=== PATIENT | male | born 1960 | race Hispanic/Latino ===

== ENCOUNTER 2018-07-09 14:05 | Inpatient (IN) | payer BC ==
[~2018-07-09 14:05] MED LIST: Dexamethasone 20 MG/5 ML VIAL ONE; Glycopyrrolate 0.2 MG/ML 5 ML SYRINGE ONE; ISOVUE-370 76%-LOCM 1 ML ONE; Ketorolac Tromethamine 30 MG/ML VIAL ONE; Lidocaine 1% PF 5 ML VIAL ONE; Ondansetron HCl/PF 4 MG/2 ML Vial ONE; PHENYLEPHRINE-NS 100 MCG/ML 10 ML SYRINGE ONE; PROPOFOL 200 MG/20 ML VIAL ONE; Succinylcholine Chloride 20 MG/ML 10 ml SYRINGE FS ONE; ePHEDrine/0.9% NaCl/PF SYRINGE 50 mg/10 ml ONE
[2018-07-09] MEDS ORDERED: Ondansetron HCl/PF 4 MG/2 ML Vial ONE (14:28)
[2018-07-09 14:41] LABS: #Eosinphils 0.1 thou/uL (0.0-0.7); #Lymphocytes 2.1 thou/uL (1.20-3.40); #Monocytes 0.9 thou/uL (0.11-0.59); #Neutrophils 10.5 thou/uL (1.40-6.50); %Basophils 0.3 % (0.0-1.0); %Eosinophils 0.7 % (0.0-10.0); %Lymphocytes 15.1 % (21.0-51.0); %Monocytes 6.7 % (0.0-10.0); %Neutrophils 77.1 % (42.0-75.0); Hemoglobin 16.1 g/dL (14.0-18.0); Mean Corpuscular HGB CONC 34.1 g/dL (32.0-36.0); Mean Corpuscular Hemoglobin 31.9 pg (27.0-31.0); Mean Corpuscular Volume 93.5 fL (78.0-98.0); Mean Platelet Volume 7.7 fL (7.4-10.4); Platelet Count 325 thou/uL (130-400); RBC Distribution Width 12.2 % (11.5-14.5); Red Blood Cell (RBC) Count 5.04 mill/uL (4.70-6.10); White Blood Cell (WBC) Count 13.6 thou/uL (4.8-10.8)
[2018-07-09 15:01] LABS: ALT (SGPT) 19 U/L (8-55); AST (SGOT) 18 U/L (5-34); Albumin 4.3 g/dL (3.5-5.0); Alkaline Phosphatase 117 U/L (40-150); Anion Gap 16 mmol/L (10-20); BUN (Urea Nitrogen) 14 mg/dL (8.4-25.7); Bilirubin, Total 0.4 mg/dL (0.2-1.2); Calc. Creatinine Clearance 0 mL/min (70-130); Calcium 9.1 mg/dL (7.8-10.44); Carbon Dioxide 22 mmol/L (22-29); Chloride 104 mmol/L (98-107); Estimated GFR-MDRD Greater than 90; Globulin 3.4 g/dL (2.4-3.5); Glucose 179 mg/dL (70-105); Lipase 7 U/L (8-78); Potassium 4.2 mmol/L (3.5-5.1); Protein, Total 7.7 g/dL (6.0-8.3); Sodium 138 mmol/L (136-145)
--- NOTE | 2018-07-09 15:14 | RAD ---
CHEST ONE VIEW ABDOMEN TWO VIEWS: History: 58-year-old male with history of abdominal epigastric pain for three days without vomiting. Prior salud endectomy and hernia repair. FINDINGS: CHEST ONE VIEW: Somewhat less than optimal inspiration but no significant acute intrathoracic disease. ABDOMEN TWO VIEWS: There are abnormally dilated distended small bowel loops with air and fluid levels, evidence for smal l bowel obstruction. There is some gas and fecal material within the transverse colon. There is no free intraperitoneal air. IMPRESSION: Evidence for small bowel obstruction. No free intraperitoneal air. No acute intrathoracic disease. POS: C
--- NOTE | 2018-07-09 16:10 | CT ---
CT ABDOMEN AND PELVIS WITH IV CONTRAST: Date: 07/09/18 HISTORY: Epigastric pain. Nausea. FINDINGS: There is mild haziness in the lung bases. No free air or free fluid is seen in the abdomen or pelvis. The liver, spleen, pancreas, adrenal glands, and kidneys are normal. No calcified gallstones are see n. There is a left-sided abdominal wall hernia in the left lower quadrant with loops of small bowel, some of which are dilated, and others are decompressed, indicating obstruction. There are inflammator y changes in the fat within the hernia sac. There is sigmoid diverticulosis. There are vascular calcifications without evidence of aneurysmal dil atation of the abdominal aorta. A circumaortic left renal vein is present. There are degenerative lobo nges in the spine. IMPRESSION: Left lower anterior abdominal hernia with obstructing loops of small bowel and probable strangulation . Discussed over the telephone with ER physician, Dr. Peña, at 1548 hours. CODE CR. POS: GRISELDA
[2018-07-09] MEDS ORDERED: Bupivacaine/Epinephrine 0.25% 30 ML VIAL ONE (16:41)
[2018-07-09] MEDS ORDERED: Fentanyl 250 MCG/5 ML VIAL ONE (17:12)
[2018-07-09] MEDS ORDERED: HYDROmorphone 2 MG/ML VIAL ONE (17:15)
[2018-07-09] MEDS ORDERED: Albumin 5% 500 ML ONE (18:07)
[2018-07-09] MEDS ORDERED: hydrALAZINE 20 MG/ML VIAL SLOW IVP PRN (19:18)
[2018-07-09] MEDS ORDERED: Dextrose 50% Abboject 50 ML SYRINGE SLOW IVP PRN (19:18)
[2018-07-09] MEDS ORDERED: Dextrose 5% in Water 1,000 ML IV PRN (19:18)
[2018-07-09] MEDS ORDERED: Promethazine HCl 25 MG/ML VIAL IM PRN ×4 (19:18→19:26)
[2018-07-09] MEDS ORDERED: Ondansetron HCl/PF 4 MG/2 ML Vial IVP PRN ×4 (19:18→19:26)
[2018-07-09] MEDS ORDERED: diphenhydrAMINE 50 MG/ML VIAL IM PRN (19:24)
[2018-07-09] MEDS ORDERED: diphenhydrAMINE 25 MG CAP PO PRN (19:24)
[2018-07-09] MEDS ORDERED: diphenhydrAMINE 50 MG/ML VIAL IVP PRN (19:24)
[2018-07-09] MEDS ORDERED: Promethazine HCl 25 MG/ML VIAL SLOW IVP PRN ×2 (19:24→19:26)
[2018-07-09] MEDS ORDERED: fentaNYL Citrate/PF 2,000 MCG in Sodium Chloride 0.9% 60 ML IV PRN (19:24)
[2018-07-09] MEDS ORDERED: Zolpidem Tartrate 5 MG TAB PO PRN (19:24)
[2018-07-09] MEDS ORDERED: Naloxone HCl 0.4 mg/ml Vial IV PRN (19:24)
[2018-07-09] MEDS ORDERED: Communication Order-Pharmacy FS SCH (19:30)
[2018-07-09] MEDS ORDERED: Fentanyl 100 MCG/2 ML VIAL ONE (19:53)
[2018-07-09] MEDS: Famotidine/PF 20 mg/2ml Vial SLOW IVP SCH (22:47)
[2018-07-09] MEDS: Famotidine 20 MG TAB PO SCH (22:47)
[2018-07-09] MEDS: D5 1/2 NS w/20 mEq KCL 1,000 ML IV SCH (22:47)
[2018-07-09] MEDS: Levofloxacin 500 mg/D5W 100 ml Premix Bag IVPB SCH (22:47)
[2018-07-09 23:08] VITALS: BMI 39.6
--- NOTE | 2018-07-09 23:57 | OP ---
DATE OF PROCEDURE: 07/09/2018 PREOPERATIVE DIAGNOSIS: Incarcerated strangulated incisional hernia. POSTOPERATIVE DIAGNOSIS: Incarcerated strangulated incisional hernia. PROCEDURE: Incarcerated strangulated incisional hernia repair with mesh, Ventralex 15 x 18 cm. SURGEON: Justin Joe M.D. ANESTHESIA: General. ESTIMATED BLOOD LOSS: Minimal. COMPLICATIONS: None. SPECIMEN: None. FINDINGS: Multiple holes in the left abdomen in area of previous surgery. TECHNIQUE: The patient was taken to the operating room and placed supine on the table. After genera l anesthetic was obtained an NG tube was placed as well as a Perry. His abdomen was shaved, prepped, and draped in a sterile fashion. Midline incision was made cut dissect around the hernia sac in the left abdomen. He had several small holes in significant amount of incarcerated omentum chronically scarred to the abdominal wall. This was all taken down back to the fascial defect. The hernia sac w as entered and the hernia sacs were debrided from the edges of the fascia circumferentially, multiple intra-abdominal adhesions had to be taken down as well. The Ventralex mesh was brought into the nilesh rile field and moistened and placed with the nonadherent surface down. The mesh had a Prolene is used to sew the mesh to the fascial edges circumferentially with good overlap. There was too big of the fascial defect to cover the mesh. The wound was irrigated. separate stab incision and sewn in place using 2-0 silk. The wound was closed using 3-0 Vicryl, 4-0 Monocryl, and Dermabond. T he patient was en route to recovery in stable condition. All instrument counts, needle counts, lap c ounts were correct.
--- NOTE | 2018-07-09 23:58 | HP ---
CHIEF COMPLAINT: Incarcerated hernia. HISTORY OF PRESENT ILLNESS: This is a 58-year-old male with a longstanding history of a large ventra l incisional hernia. He states that he had previous hernia repair. He then had to have open appende ctomy where his midline wound was left open, described 8/10 sharp pain associated with nausea, no vom iting. He did vomit once after the CT contrast was given. No change in bowels. He does not think h e has mesh in place from the prior hernia repair. PAST MEDICAL HISTORY: He denies. PAST SURGICAL HISTORY: As above. MEDICINES TAKEN DAILY: None. ALLERGIES: No known drug allergies. SOCIAL HISTORY: Former smoker. No alcohol or other drugs. REVIEW OF SYSTEMS: Ten-system review of systems otherwise negative unless described above. PHYSICAL EXAMINATION: HEENT: Sclerae are anicteric. Oropharynx clear. NECK: No lymphadenopathy. CHEST: Clear. HEART: Regular rhythm. ABDOMEN: Soft. Tender in the area of the hernia with localized guarding, without rebound, no inguin al hernias. LABORATORY AND X-RAY FINDINGS: CT scan shows incisional hernia and evidence of blockage of the intestine. ASSESSMENT: Incarcerated likely strangulated incisional hernia. PLAN: Operative laparotomy and repair, possible mesh, possible allograft mesh. He understands risks , benefits, alternatives, gives consent. We will do this today.
[2018-07-10 04:25] LABS: #Monocytes 0.9 thou/uL (0.11-0.59); #Neutrophils 8.6 thou/uL (1.40-6.50); %Basophils 0.1 % (0.0-1.0); %Eosinophils 0.1 % (0.0-10.0); %Lymphocytes 9.1 % (21.0-51.0); %Monocytes 8.5 % (0.0-10.0); %Neutrophils 82.2 % (42.0-75.0); Hemoglobin 13.9 g/dL (14.0-18.0); Mean Corpuscular HGB CONC 34.7 g/dL (32.0-36.0); Mean Corpuscular Hemoglobin 32.6 pg (27.0-31.0); Mean Platelet Volume 7.8 fL (7.4-10.4); Platelet Count 280 thou/uL (130-400); RBC Distribution Width 12.3 % (11.5-14.5); Red Blood Cell (RBC) Count 4.27 mill/uL (4.70-6.10); White Blood Cell (WBC) Count 10.5 thou/uL (4.8-10.8)
[2018-07-10] MEDS: D5 1/2 NS w/20 mEq KCL 1,000 ML IV SCH ×3 (04:29→18:57)
[2018-07-10 04:38] LABS: Anion Gap 15 mmol/L (10-20); BUN (Urea Nitrogen) 15 mg/dL (8.4-25.7); Calc. Creatinine Clearance 225 mL/min (70-130); Calcium 8.2 mg/dL (7.8-10.44); Carbon Dioxide 21 mmol/L (22-29); Chloride 106 mmol/L (98-107); Estimated GFR-MDRD Greater than 90; Glucose 196 mg/dL (70-105); Potassium 4.2 mmol/L (3.5-5.1); Sodium 138 mmol/L (136-145)
[2018-07-10] MEDS: Famotidine/PF 20 mg/2ml Vial SLOW IVP SCH ×2 (09:29→21:52)
[2018-07-10] MEDS: Famotidine 20 MG TAB PO SCH ×2 (11:34→21:52)
--- NOTE | 2018-07-10 14:56 | PRG ---
DATE OF SERVICE: 07/10/2018 SUBJECTIVE: Mr. Lyle is doing well today. He is thirsty. NG output is not put out much. He has been walking. His pain is controlled. PHYSICAL EXAMINATION: VITAL SIGNS: Afebrile. Vital signs are stable. ABDOMEN: Soft. His wounds are healing well. YAYA is more sanguinous. ASSESSMENT: Postop day #1, incisional hernia repair with mesh. PLAN: Discontinue NG, allow clears, make get him up and around. Probably home on Friday.
[2018-07-10] MEDS: Levofloxacin 500 mg/D5W 100 ml Premix Bag IVPB SCH (21:51)
[2018-07-11] MEDS: D5 1/2 NS w/20 mEq KCL 1,000 ML IV SCH (06:14)
[2018-07-11] MEDS: Famotidine 20 MG TAB PO SCH ×2 (08:02→21:32)
[2018-07-11] MEDS: Famotidine/PF 20 mg/2ml Vial SLOW IVP SCH ×2 (08:03→22:03)
[2018-07-11] MEDS ORDERED: Morphine 4 MG/ML VIAL SLOW IVP PRN (08:15)
[2018-07-11] MEDS ORDERED: HYDROcodone/Acetaminophen 10/325 mg Tablet PO PRN (08:15)
--- NOTE | 2018-07-11 08:55 | PRG ---
DATE OF SERVICE: 07/11/2018 SUBJECTIVE: Mr. Lyle is doing well. He tolerated the clear liquids. No nausea. OBJECTIVE: VITAL SIGNS: He is afebrile. Vital signs are stable. ABDOMEN: Soft. He is minimally distended. His wounds are healing well. He has some erythema over the hernia site. YAYA output is serosanguineous. ASSESSMENT: Postoperative day #2, large incisional hernia repair with mesh. PLAN: Advance to full today. Discontinue DEVELOPMENT ARCHITECT. Start [place]. Home tomorrow if tolerates.
[2018-07-11] MEDS: HYDROcodone/Acetaminophen 10/325 mg Tablet PO PRN ×2 (09:43→21:31)
[2018-07-11] MEDS: Levofloxacin 500 mg/D5W 100 ml Premix Bag IVPB SCH (21:32)
[2018-07-12] MEDS: HYDROcodone/Acetaminophen 10/325 mg Tablet PO PRN (08:50)
[2018-07-12] MEDS: Famotidine 20 MG TAB PO SCH ×2 (08:50→21:37)
[2018-07-12] MEDS: Famotidine/PF 20 mg/2ml Vial SLOW IVP SCH ×2 (08:56→21:44)
--- NOTE | 2018-07-12 09:02 | PRG ---
DATE OF SERVICE: 07/12/2018. SUBJECTIVE: Mr. Lyle is doing well with the liquid diet. Denies nausea. He has been ambulat ory. OBJECTIVE: VITAL SIGNS: He is afebrile. Vital signs are stable. ABDOMEN: Soft, minimally distended, but he has bowel sounds. Midline wound healing well. He does h ave some erythema in the thin skin over the hernia site in the left upper abdomen. YAYA hargrove ASSESSMENT: Postop large incisional hernia repair with mesh. PLAN: Advance diet, convert to oral antibiotics, possible home tomorrow.
[2018-07-13] MEDS: HYDROcodone/Acetaminophen 10/325 mg Tablet PO PRN ×2 (05:00→08:43)
[2018-07-13] MEDS: Famotidine 20 MG TAB PO SCH (08:41)
[2018-07-13] MEDS: Famotidine/PF 20 mg/2ml Vial SLOW IVP SCH (08:45)
--- NOTE | 2018-07-13 10:27 | DIS ---
ADMIT DIAGNOSIS: Incarcerated strangulated incisional hernia. DISCHARGE DIAGNOSIS: Incarcerated strangulated incisional hernia. PROCEDURES: Incarcerated incisional hernia repair with mesh by Dr. Joe without complication. CONDITION AT DISCHARGE: Improved. STAFF: Dr. Justin Joe HOSPITAL COURSE: Today, the patient is doing well. He is tolerating regular diet. He has had a bow el movement. He is afebrile. His wounds are healing well. There is no evidence of infection. YAYA i s serosanguineous. ASSESSMENT: Discharge to home to follow up with me in 1 week for drain removal. Prescriptions given for Turpin and Zofran.
[2018-07-13 12:19] VITALS: BP 145/85; TEMP 97.8
== END 2018-07-13 12:36 | disposition home or self-care (01) | DRG 354 ==
LOC: ERS 14:05 → SDC/OP 16:04 → ERS 16:33 → SURG A 21:22
PROVIDERS: ADMIT Surgery; ATTEND Surgery
PROC: 0WUF0JZ Supplement Abdominal Wall with Synthetic Substitute, Open Approach (ICD-10-PCS; principal; 2018-07-09)
DX: K43.0 Incisional hernia with obstruction, without gangrene (principal); Z68.41 Body mass index [BMI] 40.0-44.9, adult; E66.9 Obesity, unspecified; Z87.891 Personal history of nicotine dependence
CPT/HCPCS: 36415; 74022; 74177; 80048; 80053; 83690; 85025; 96374; 96375; 99406; J1100; J1170; J1885; J1956; J2001; J2270; J2405; J2704; J3010; J7050; P9045; S0028

== ENCOUNTER 2019-08-07 07:17 | Emergency (ER) | payer BC ==
[2019-08-07 07:58] LABS: #Basophils 0.1 thou/uL (0.0-0.2); #Eosinphils 0.2 thou/uL (0.0-0.7); #Lymphocytes 3.1 thou/uL (1.20-3.40); #Monocytes 0.7 thou/uL (0.11-0.59); #Neutrophils 8.2 thou/uL (1.40-6.50); %Basophils 0.8 % (0.0-1.0); %Lymphocytes 25.3 % (21.0-51.0); %Monocytes 5.7 % (0.0-10.0); %Neutrophils 66.2 % (42.0-75.0); Hemoglobin 15.3 g/dL (14.0-18.0); Mean Corpuscular HGB CONC 33.9 g/dL (32.0-36.0); Mean Corpuscular Hemoglobin 30.8 pg (27.0-31.0); Mean Corpuscular Volume 90.7 fL (78.0-98.0); Mean Platelet Volume 8.3 fL (7.4-10.4); Platelet Count 319 thou/uL (130-400); RBC Distribution Width 12.3 % (11.5-14.5); Red Blood Cell (RBC) Count 4.98 mill/uL (4.70-6.10); White Blood Cell (WBC) Count 12.4 thou/uL (4.8-10.8)
[2019-08-07 08:20] LABS: ALT (SGPT) 11 U/L (8-55); AST (SGOT) 9 U/L (5-34); Albumin 3.8 g/dL (3.5-5.0); Alkaline Phosphatase 126 U/L (40-150); Anion Gap 10 mmol/L (10-20); BUN (Urea Nitrogen) 11 mg/dL (8.4-25.7); Bilirubin, Total 0.3 mg/dL (0.2-1.2); Calc. Creatinine Clearance 0 mL/min (70-130); Calcium 8.8 mg/dL (7.8-10.44); Carbon Dioxide 25 mmol/L (22-29); Chloride 102 mmol/L (98-107); Estimated GFR-MDRD Greater than 90; Globulin 2.8 g/dL (2.4-3.5); Glucose 288 mg/dL (70-105); Potassium 4.2 mmol/L (3.5-5.1); Protein, Total 6.6 g/dL (6.0-8.3); Sodium 133 mmol/L (136-145)
== END 2019-08-07 08:33 | disposition home or self-care (01) ==
LOC: ERS 07:17
DX: R73.9 Hyperglycemia, unspecified (principal); F17.210 Nicotine dependence, cigarettes, uncomplicated
CPT/HCPCS: 36415; 36416; 80053; 82010; 85025; 99284

== ENCOUNTER 2020-02-20 00:16 | Inpatient (IN) | payer BC ==
[2020-02-20] MEDS ORDERED: Morphine 4 MG/ML VIAL ONE (00:50)
[2020-02-20] MEDS ORDERED: Ondansetron PF 4 MG/2 ML Vial ONE (00:51)
[2020-02-20 01:16] LABS: #Basophils 0.1 thou/uL (0.0-0.2); #Eosinphils 0.1 thou/uL (0.0-0.7); #Lymphocytes 1.7 thou/uL (1.20-3.40); #Monocytes 0.6 thou/uL (0.11-0.59); #Neutrophils 15.2 thou/uL (1.40-6.50); %Basophils 0.3 % (0.0-1.0); %Eosinophils 0.3 % (0.0-10.0); %Lymphocytes 9.5 % (21.0-51.0); %Monocytes 3.4 % (0.0-10.0); %Neutrophils 86.4 % (42.0-75.0); Hemoglobin 14.6 g/dL (14.0-18.0); Mean Corpuscular HGB CONC 33.5 g/dL (32.0-36.0); Mean Corpuscular Hemoglobin 30.2 pg (27.0-31.0); Mean Corpuscular Volume 90.3 fL (78.0-98.0); Mean Platelet Volume 8.1 fL (7.4-10.4); Platelet Count 358 thou/uL (130-400); RBC Distribution Width 12.3 % (11.5-14.5); Red Blood Cell (RBC) Count 4.83 mill/uL (4.70-6.10); White Blood Cell (WBC) Count 17.6 thou/uL (4.8-10.8)
[2020-02-20 01:31] LABS: ALT (SGPT) 10 U/L (8-55); AST (SGOT) 10 U/L (5-34); Albumin 3.9 g/dL (3.5-5.0); Alkaline Phosphatase 115 U/L (40-110); Anion Gap 14 mmol/L (10-20); BUN (Urea Nitrogen) 14 mg/dL (8.4-25.7); Bilirubin, Total 0.4 mg/dL (0.2-1.2); Calc. Creatinine Clearance 0 mL/min (70-130); Calcium 8.9 mg/dL (7.8-10.44); Carbon Dioxide 31 mmol/L (22-29); Chloride 96 mmol/L (98-107); Estimated GFR-MDRD Greater than 90; Glucose 209 mg/dL (70-105); Lipase 11 U/L (8-78); Potassium 3.7 mmol/L (3.5-5.1); Protein, Total 6.9 g/dL (6.0-8.3); Sodium 137 mmol/L (136-145)
--- NOTE | 2020-02-20 01:48 | PDOC.FPRHP ---
- History of Present Illness Chief Complaint: abd pain History of Present Illness: Patient is a 59 yo male who presents with complaint of lower abdominal pain, worse on the right side, that started around 11 AM on 02/19/20. Patient says pain has become progressively worse throughout the day, accompanied by nausea & some bloating but denies any vomiting. Has been passing some gas. Has had similar pain on/off for the past week but yesterday it became constant. He reports having to use Miralax for the past year to have regular BM's, which he has daily. When he has a BM he describes them as "little" and usually watery with some formed stools. He has never had a colonoscopy. He does have a history of an incarcerated ventral hernia that was repaired in Jun [address] Wilson at [facility]. Patient says he has had at least 3 other operations on this hernia in the past. He complains of some tenderness in this area but says it is not as significant as in the right lower abdomen. ED Course: Given 1L IVF NS bolus, Zofran 4 mg, Morphine 4 mg - Allergies/Adverse Reactions Allergies Allergy/AdvReac Type Severity Reaction Status Date / Time No Known Drug Allergies Allergy Verified 02/20/20 04:28 - Home Medications Medication Instructions Recorded Confirmed Type Indapamide 2.5 mg PO DAILY 02/20/20 02/20/20 History Lisinopril 10 mg PO DAILY 02/20/20 02/20/20 History Vardenafil HCl 10 mg PO PRN PRN 02/20/20 02/20/20 History metFORMIN HCl [Metformin HCl ER] 500 mg PO DAILY 02/20/20 02/20/20 History Comments: *needs home med rec*, patient uses pharmacy [facility] on [facility] - History PMHx: DM2, HTN PSHx: hernia repair x3, appendectomy possibly FHx: denies any family members with Cancer, mom with CAD Social: smokes 1/2-1 ppd, denies EtOH or drug use Dr. Barakat - [facility] - Review of Systems General: reports: weight/appetite/sleep changes (decreased appetite). denies: fever/chills, fatigue Eyes: denies: vision changes Respiratory: denies: cough, congestion, shortness of breath Cardiovascular: denies: chest pain Gastrointestinal: reports: nausea, constipation, abdominal pain. denies: vomiting, diarrhea Genitourinary: denies: dysuria Skin: denies: rashes, jaundice Musculoskeletal: denies: pain, tenderness, swelling, arthritis/arthralgias Neurological: denies: weakness - Vital signs BP: 154/90 HR: 80 RR: 16 Tmax: 97.9F Pox: 97% on RA Wt: 120 kg - Physical Exam Constitutional: NAD, awake, alert and oriented, well developed (obese) HEENT: normocephalic and atraumatic, EOMI, conjunctiva clear, grossly normal vision, grossly normal hearing, MMM Neck: supple, FROM, no JVD Chest: no-tender to palpation, no lesions Heart: RRR, normal S1/S2, pulses present, no edema -Heart: grade II systolic murmur over mitral valve Lungs: CTAB, no respiratory distress, no rales/rhonchi, no wheezing Abdomen: soft, bowel sounds present -Abdomen: mildly TTP over ventral hernia with no guarding or rebound in this area. significantly TTP in RLQ with palpable mass in this area with positive rebound tenderness, no guarding. Musculoskeletal: normal structure, normal tone, ROM grossly normal Neurological: no focal deficit, normal sensation Skin: no rash/lesions, good turgor, no jaundice Heme/Lymphatic: no unusual bruising or bleeding Psychiatric: normal mood and affect, intact recent and remote memory FMR H&P: Results - Labs Result Diagrams: 02/20/20 01:03 02/20/20 01:03 Lab results: WBC 17.6 thou/uL (4.8-10.8) H 02/20/20 01:03 Hgb 14.6 g/dL (14.0-18.0) 02/20/20 01:03 Hct 43.7 % (42.0-52.0) 02/20/20 01:03 MCV 90.3 fL (78.0-98.0) 02/20/20 01:03 Plt Count 358 thou/uL (130-400) 02/20/20 01:03 Neutrophils % 86.4 % (42.0-75.0) H 02/20/20 01:03 Sodium 137 mmol/L (136-145) 02/20/20 01:03 Potassium 3.7 mmol/L (3.5-5.1) 02/20/20 01:03 Chloride 96 mmol/L (98-107) L 02/20/20 01:03 Carbon Dioxide 31 mmol/L (22-29) H 02/20/20 01:03 BUN 14 mg/dL (8.4-25.7) 02/20/20 01:03 Creatinine 0.75 mg/dL (0.7-1.3) 02/20/20 01:03 Glucose 209 mg/dL (70-105) H 02/20/20 01:03 Calcium 8.9 mg/dL (7.8-10.44) 02/20/20 01:03 Total Bilirubin 0.4 mg/dL (0.2-1.2) 02/20/20 01:03 AST 10 U/L (5-34) 02/20/20 01:03 ALT 10 U/L (8-55) 02/20/20 01:03 Alkaline Phosphatase 115 U/L (40-110) H 02/20/20 01:03 Serum Total Protein 6.9 g/dL (6.0-8.3) 02/20/20 01:03 Albumin 3.9 g/dL (3.5-5.0) 02/20/20 01:03 Lipase 11 U/L (8-78) 02/20/20 01:03 - Radiology Interpretation CT scan - abdomen Status: report reviewed by me (4 cm long segment of circumferential colonic wall thickening, just distal to cecum, causing obstruction and distension of the cecum. Cecum measures up to at least 9.6 cm in diameter. There is inflammatory stranding and multiple subcentimeter lymph nodes at the site of the colonic wall thickening. Sigmoid diverticulosis. Cholelithiasis vs gallbladder sludge.) FMR H&P: A/P - Problem List (1) Large bowel obstruction Current Visit: Yes Status: Acute Code(s): K56.609 - UNSP INTESTNL OBST, UNSP TO PARTIAL VERSUS COMPLETE OBST (2) HTN (hypertension) Current Visit: Yes Status: Acute Code(s): I10 - ESSENTIAL (PRIMARY) HYPERTENSION Qualifiers: Hypertension type: unspecified Qualified Code(s): I10 - Essential (primary ) hypertension (3) T2DM (type 2 diabetes mellitus) Current Visit: Yes Status: Acute Qualifiers: Diabetes mellitus mcfp insulin use: without [employer] use Diabetes mellitus complication status: without complication Qualified Code(s): E11.9 - Type 2 diabetes mellitus without complications (4) Ventral hernia Current Visit: Yes Status: Acute Code(s): K43.9 - VENTRAL HERNIA WITHOUT OBSTRUCTION OR GANGRENE Qualifiers: Obstruction and gangrene presence: without obstruction or gangrene Qualified Code(s): K43.9 - Ventral hernia without obstruction or gangrene - Plan 59 yo male with PMHx of HTN and DM who presents with abdominal pain is admitted for LBO with suspected colon mass: #Large Bowel Obstruction -Likely 2/2 mass of colon just distal to cecum -NG tube placed in ER -Consult General Surgery-Dr. Choi, was called from ED, instructed to place NGT and will see pt in AM--appreciate further recs -s/p 1L NS in ED, will continue maintenance IVF LR @ 125 -Zofran prn for nausea -Morphine prn for pain #HTN -Continue home meds once able to med rec #DM2 -Hold home metformin -Hyperglycemia protocol in place -mild SSI & bedtime correctional SSI -Accuchecks ACHS #Tobacco abuse -smokes 0.5-1 ppd -smoking cessation counseling Diet: NPO, ice chips okay VTE ppx: SCD's pending surgical eval Code Status: FULL Dispo: Stable, Admit to inpatient on Surgical unit. Await surgical eval in AM, appreciate recs. Anticipate LOS > 2 days. FMR H&P: Upper Level - Pertinent history 59 y/o M PMHx DM2, HTN presents to the ED due to abdominal pain. He reports the abdominal pain became severe around 1pm today. He ate lunch around 11 and noticed mild pain around 12. He reports the pain has been intermittent over the past week, but not as severe. The pain is mostly in his R lower abdomen. He reports having to use Miralax for the past year to have regular BM's. He said that he only has little BM's each time. He reports nausea , but denies vomiting. He feels bloated. He has never had a colonoscopy. - Pertinent findings Vitals: BP 154/90, HR 80, RR 16, Temp 97.9, O2 sat 97% on RA PE: Gen - alert, oriented, NAD Abd - ventral hernia, non-distended, mass palpated in RLQ with associated tenderness Labs: WBC 17.6 CT abd/pelvis: circumferential colonic wall thickening distal to cecum causing obstruction and distension of the cecum - Plan Date/Time: 02/20/20 2601 I, Tammie Fernandez MD, PGY-3, have evaluated this patient and agree with findings/ plan as outlined by internet consultant resident. Pertinent changes/additions are listed here. Large Bowel Obstruction Likely 2/2 ascending colonic mass -NG tube placed in ER -NPO -General surgery consulted from ED and will see pt in AM -IVF -Zofran Colonic Mass Pt never had a colonoscopy, no family hx colon cancer -General surgeon has been consulted HTN -Continue home meds once able to med rec DM2 -Hold metformin -SSI -Accuchecks ACHS Dispo: Admit to Surgical VTE ppx: SCD's pending surgical eval Code Status: Full Addendum - Attending - Attending Attestation Date/Time: 02/20/20 6748 I personally evaluated the patient and discussed the management with Dr. Yepez/ Jim. I agree with the History, Examination, Assessment and Plan documented above with any addition or exceptions noted below. Patient with chronic but worsening abdominal pain, CT imaging concerning for cecal mass. General Surgery consult and further mgmt per that result. WIll need GI if no plans for surgery.
[2020-02-20 03:05] LABS: Bilirubin Negative (Negative); Blood, Urine Negative (Negative); Clarity Clear (Clear); Glucose, Urine (Dipstick) 50 mg/dL (Negative); Leukocyte Negative Leu/uL (Negative); Nitrite Negative (Negative); Protein, Urine (Dipstick) 20 mg/dL (Neg-Trace); Urobilinogen Normal mg/dL (Less than 2)
[2020-02-20] MEDS ORDERED: Ondansetron ODT 4 MG TAB SL PRN (03:34)
[2020-02-20] MEDS ORDERED: Morphine 2 MG/ML SYRINGE SLOW IVP PRN ×2 (03:34→03:39)
[2020-02-20] MEDS ORDERED: Ondansetron PF 4 MG/2 ML Vial IVP PRN ×2 (03:34→03:39)
[2020-02-20] MEDS ORDERED: Acetaminophen 650 MG Suppository PR PRN (03:39)
[2020-02-20] MEDS ORDERED: Senokot S 8.6-50 MG TAB PO PRN (03:39)
[2020-02-20] MEDS ORDERED: Dextrose 5% in Water 1,000 ML IV PRN (03:39)
[2020-02-20] MEDS ORDERED: Ondansetron ODT 4 MG TAB PO PRN (03:39)
[2020-02-20] MEDS ORDERED: HumaLOG 300 UNITS/3 ML VIAL SC PRN (03:39)
[2020-02-20] MEDS ORDERED: Dextrose 50% Abboject 50 ML SYRINGE SLOW IVP PRN (03:39)
[2020-02-20] MEDS: Sodium Chloride 0.9% 1,000 ML IV SCH ×2 (03:58→13:13)
[2020-02-20 04:23] VITALS: BMI 36.9
[2020-02-20] MEDS: Lactated Ringer's 1,000 ML IV SCH ×3 (04:58→17:04)
--- NOTE | 2020-02-20 08:13 | CT ---
PRELIMINARY REPORT/DIRECT RADIOLOGY/EMERGENCY AFTER HOURS PROCEDURE Receipt of this report by the clinical staff was confirmed with Ruben Whalen RN by Ivana Amado on Feb 20, 2020 01:08:00 CDT. Addendum electronically signed by Ivana Amado on February 20, 2020 1:08:53 AM CDT EXAM: CT Abdomen and Pelvis with Intravenous Contrast CLINICAL HISTORY: RLQ Abdominal Pain TECHNIQUE: Axial computed tomography images of the abdomen and pelvis with intravenous contrast. CONTRAST: With; ISOVUE 370,100mL COMPARISON: CT\OK\SR - CT ABDOMEN PELVIS W CON - 07/09/2018 03:28 PM CDT FINDINGS: LUNG BASES: Mild bibasilar groundglass opacities. Coronary artery calcifications. LIVER: Unremarkable. GALLBLADDER AND BILE DUCTS: Dense material layers in the gallbladder fundus, likely representing eith er stones or sludge. PANCREAS: Unremarkable. SPLEEN: Unremarkable. ADRENAL GLANDS: Unremarkable. KIDNEYS, URETERS, AND BLADDER: Unremarkable. No hydronephrosis or nephrolithiasis. No ureteral or eamon dder calculi. STOMACH AND BOWEL: The cecum is distended and filled with stool and fluid. Just distal to the cecum t here is a 4 cm long segment of circumferential wall thickening of the colon, causing the obstruction, highly concerning for neoplasm. There is also mild dilation of the distal small bowel with fluid. There is inflammatory stranding in the adjacent colonic mesentery and there are multiple subcentimete r lymph nodes. There is also inflammatory stranding surrounding the cecum, likely due to inflammatio n from the distension. There is sigmoid diverticulosis. Patient appears to be status post ventral a bdominal wall hernia repair. There are at least two small ventral abdominal wall hernias near the [facility], containing a loop of small bowel, measuring up to 3.7 cm transverse. APPENDIX: Not seen. PERITONEUM: No free fluid. No free air. LYMPH NODES: No lymphadenopathy. REPRODUCTIVE: Unremarkable as visualized. VASCULATURE: No aortic aneurysm. BONES: No fracture or suspicious osseous abnormality. ABDOMINAL WALL AND SOFT TISSUES: Unremarkable. IMPRESSION: 4 cm long segment of circumferential colonic wall thickening, just distal to the cecum, causing obstr uction and distension of the cecum. The cecum measures up to at least 9.6 cm in diameter. There is inflammatory stranding and multiple subcentimeter lymph nodes at the site of the colonic wall thicke thu. Sigmoid diverticulosis. Cholelithiasis vs gallbladder sludge. ELECTRONICALLY SIGNED BY: Rian Ruth MD Feb 20, 2020 1:03:33 AM CDT FINAL REPORT EMERGENT AFTER HOURS CT ABDOMEN AND PELVIS: IMPRESSION: Agree with the preliminary interpretation. In addition, there is a stable oval fluid density structu re within the extrapleural fat of the medial left lower chest, stable with respect to multiple prior examinations and presumably reflecting a congenital cyst. POS: DAYO
--- NOTE | 2020-02-20 09:10 | RAD ---
PORTABLE CHEST: DATE: 02/20/2020. PROVIDED CLINICAL HISTORY: Abdominal pain. FINDINGS: Comparison 08/19/2011. The upper abdomen and lower thorax are imaged for evaluation of enteric cathet er placement. Cardiac silhouette appears grossly stable in size. No definite focal consolidation is evident. Enteric catheter is noted, the tip of which overlies the left upper abdomen. The bowel ga s pattern is nonspecific. IMPRESSION: As above. POS: DAYO
[2020-02-20] MEDS ORDERED: Heparin 1,000 UNITS/ML VIAL ONE (10:35)
[2020-02-20] MEDS: HumaLOG 300 UNITS/3 ML VIAL SC PRN (12:44)
[2020-02-20] MEDS ORDERED: Iopamidol 370 76% 50 ML VIAL FS ONE (13:27)
[2020-02-20] MEDS ORDERED: cefOXitin 2 GM in Sodium Chloride 0.9% 100 ML IVPB SCH (13:45)
[2020-02-20] MEDS ORDERED: cefOXitin Sodium/Dextrose,Iso 2 GM in Premix Bag 1 BAG IVPB SCH (13:45)
--- NOTE | 2020-02-20 17:28 | CON ---
DATE OF CONSULTATION: REASON FOR CONSULTATION: Abnormal EKG, preoperative evaluation. HISTORY OF PRESENT ILLNESS: Mr. Lyle is a very pleasant 59-year-old gentleman, came in with abdominal pain, may have large bowel obstruction. The plan is to go to the operating room tomorrow. As part of the evaluation, EKG was done, which shows a bifascicular block. The patient denies any chest pain or pressure. No heaviness or squeezing. He is resting comfortably now. No previous cardiac history. MEDICATIONS PRIOR TO ADMISSION: 1. Metformin. 2. Lisinopril. 3. Indapamide. 4. Vardenafil. ALLERGIES: NONE KNOWN. SOCIAL HISTORY: No alcohol or tobacco abuse. REVIEW OF SYSTEMS: Per the chart. CONSTITUTIONAL: No significant weight gain or loss. VISION: No changes. HEARING: No changes. PULMONARY: No cough or wheezing. GASTROINTESTINAL: No nausea, vomiting, or diarrhea. SKIN: No rashes. NEUROLOGIC: No unilateral weakness or numbness. PSYCHIATRIC: No unusual depression or anxiety. PHYSICAL EXAMINATION: VITAL SIGNS: Blood pressure 127/77, pulse 66 and regular. EYES: Sclerae nonicteric. MOUTH: Mucous membranes moist. NECK: Supple. No lymphadenopathy. LUNGS: Clear. CARDIAC: Normal S1, normal S2. There is a 2/6 to 3/6 mid systolic murmur, left mid sternal border. No diastolic murmur. No S3. ABDOMEN: Soft, nontender. EXTREMITIES: Warm and dry. No clubbing, cyanosis, or edema. Pedal pulses present. DIAGNOSTIC STUDIES: EKG shows right bundle-branch block with left axis deviation. Creatinine 0.75, glucose is 184 earlier. ASSESSMENT: 1. Abdominal findings of probable large-bowel obstruction, will need surgical correction. 2. Bifascicular block. 3. Murmur. PLAN: 1. Echocardiogram. 2. I will look to see if he has ever had a previous EKG.. If it is a new finding, I will draw troponin. If it is an old finding, then probably would not need a troponin level. Either way, we plan on surgery tomorrow, but would like to get the echocardiogram first. Job ID: [id number] MTDD
--- NOTE | 2020-02-20 17:45 | CON ---
DATE OF CONSULTATION: CHIEF COMPLAINT: Abdominal pain, distention, and nausea. HISTORY OF PRESENT ILLNESS: This is a 59-year-old male with a 2-week history of abdominal pain and nausea. He said he had bowel movement and some flatus today. No fevers or chills. No family history of colon cancer. He has never had a colonoscopy. PAST MEDICAL HISTORY: Diabetes, hypertension, and obesity. PAST SURGICAL HISTORY: Had at least 2 previous ventral hernia repairs with mesh. MEDICATIONS: He says he takes: 1. Indamide 2.5 mg daily. 2. Vardenafil 10 mg p.o. p.r.n. 3. Metformin 500 daily. 4. Lisinopril 10 mg daily. ALLERGIES: NO KNOWN DRUG ALLERGIES. SOCIAL HISTORY: He is single. Smokes 1/2 pack per day. No alcohol. FAMILY HISTORY: Noncontributory. PHYSICAL EXAMINATION: GENERAL: He is an obese male, in no apparent distress. VITAL SIGNS: His temperature is 98.7, pulse 74, blood pressure 130/71. HEENT: Unremarkable. LUNGS: Clear. HEART: Regular rate and rhythm. ABDOMEN: Obese and soft. He has multiple ventral hernias. He has well-healed surgical scar in the midline. These hernias are easily reducible. There is no significant tenderness. There are bowel sounds present. EXTREMITIES: Unremarkable. LABORATORY DATA: White count 17.6, H and H of 14 and 43, platelet count 358. Electrolytes; elevated glucose at 208. Alkaline phosphatase elevated at 115. CEA is elevated at 5.89. CT scan shows a near-obstructing mass just distal to the cecum in the right colon. There is evidence of lymphadenopathy consistent with possible metastatic disease. He has sigmoid diverticulosis. ASSESSMENT: 1. Near-obstructing colon cancer. 2. Recurrent ventral hernias. PLAN: Recommend exploratory laparotomy, right hemicolectomy with attempt at repair of the hernias. CONSENT: I have discussed the planned procedure as well as risk of bleeding, infection, injury to bowel, recurrence of the hernias, and leakage from anastomosis. He understands and gives informed consent. Job ID: [id number]
[2020-02-20 17:56] LABS: Troponin I Less than 0.010 ng/mL (< 0.028)
[2020-02-21] MEDS: Lactated Ringer's 1,000 ML IV SCH ×3 (01:42→17:30)
[2020-02-21 05:17] LABS: #Basophils 0.1 thou/uL (0.0-0.2); #Eosinphils 0.4 thou/uL (0.0-0.7); #Lymphocytes 3.2 thou/uL (1.20-3.40); #Monocytes 0.7 thou/uL (0.11-0.59); #Neutrophils 6.2 thou/uL (1.40-6.50); %Basophils 0.6 % (0.0-1.0); %Eosinophils 3.8 % (0.0-10.0); %Lymphocytes 30.2 % (21.0-51.0); %Monocytes 6.8 % (0.0-10.0); %Neutrophils 58.5 % (42.0-75.0); Hemoglobin 13.5 g/dL (14.0-18.0); Mean Corpuscular HGB CONC 32.9 g/dL (32.0-36.0); Mean Corpuscular Hemoglobin 29.8 pg (27.0-31.0); Mean Corpuscular Volume 90.5 fL (78.0-98.0); Mean Platelet Volume 8.1 fL (7.4-10.4); Platelet Count 310 thou/uL (130-400); RBC Distribution Width 12.4 % (11.5-14.5); Red Blood Cell (RBC) Count 4.53 mill/uL (4.70-6.10); White Blood Cell (WBC) Count 10.6 thou/uL (4.8-10.8)
[2020-02-21 05:35] LABS: Anion Gap 9 mmol/L (10-20); BUN (Urea Nitrogen) 14 mg/dL (8.4-25.7); Calc. Creatinine Clearance 210 mL/min (70-130); Calcium 8.2 mg/dL (7.8-10.44); Carbon Dioxide 29 mmol/L (22-29); Chloride 101 mmol/L (98-107); Estimated GFR-MDRD Greater than 90; Glucose 139 mg/dL (70-105); Potassium 3.9 mmol/L (3.5-5.1); Sodium 135 mmol/L (136-145)
--- NOTE | 2020-02-21 05:41 | PDOC.FM ---
- Subjective Subjective: Patient doing well this morning. +watery BM, + flatus. Denies hematochezia/ melena. Reports improved abdominal pain. Discussed plans for echo and surgery today, patient agreeable with plan of care. - Objective Vital Signs & Weight: Vital Signs (12 hours) Temp Pulse Resp BP Pulse Ox 02/21/20 03:20 97.3 F L 70 18 123/80 96 02/20/20 23:38 98.3 F 72 18 143/81 H 96 02/20/20 22:40 96 02/20/20 19:16 98.5 F 67 16 132/87 96 Weight Weight 120.202 kg I&O: 02/19/20 02/20/20 02/21/20 06:59 06:59 06:59 Intake Total 1500 Output Total 100 1425 Balance -100 75 Result Diagrams: 02/21/20 04:42 02/21/20 04:42 Phys Exam - Physical Examination Constitutional: NAD HEENT: moist MMs, sclera anicteric Neck: supple, full ROM Respiratory: no wheezing, clear to auscultation bilateral Cardiovascular: RRR holosystolic murmur Gastrointestinal: soft, positive bowel sounds prior incision scar intact, areas of apparent hernia present Musculoskeletal: no edema, pulses present Neurological: normal sensation, moves all 4 limbs Psychiatric: normal affect, A&O x 3 Skin: no rash, normal turgor Dx/Plan (1) Large bowel obstruction Code(s): K56.609 - UNSP INTESTNL OBST, UNSP TO PARTIAL VERSUS COMPLETE OBST Status: Acute (2) HTN (hypertension) Code(s): I10 - ESSENTIAL (PRIMARY) HYPERTENSION Status: Chronic Qualifiers: Hypertension type: unspecified Qualified Code(s): I10 - Essential (primary ) hypertension (3) T2DM (type 2 diabetes mellitus) Status: Chronic Qualifiers: Diabetes mellitus longwall shearer operator insulin use: without jail use Diabetes mellitus complication status: without complication Qualified Code(s): E11.9 - Type 2 diabetes mellitus without complications (4) Ventral hernia Code(s): K43.9 - VENTRAL HERNIA WITHOUT OBSTRUCTION OR GANGRENE Status: Chronic Qualifiers: Obstruction and gangrene presence: without obstruction or gangrene Qualified Code(s): K43.9 - Ventral hernia without obstruction or gangrene - Plan Plan: 59 yo male with PMHx of HTN and DM who presents with abdominal pain is admitted for LBO with suspected colon mass: #Large Bowel Obstruction -Likely 2/2 mass of colon just distal to cecum -NG tube placed in ER, removed -Consult General Surgery-Dr. Choi, was called from ED, instructed to place NGT -Dr. Hogan consulted 02/19, rec surg 02/20 for LBO with suspected colon cancer, and attempted correction of ventral hernia -Dr. 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 Anticipate surgery today. Anticipate LOS > 2 days. Addendum - Attending - Attending Attestation Date/Time: 02/21/202015 I personally evaluated the patient and discussed the management with Dr. Ang I agree with the History, Examination, Assessment and Plan documented above with any addition or exceptions noted below. Patient seen post operatively. States pain is controlled. No concerns awaiting further recommendations from general surgery.
[2020-02-21] MEDS ORDERED: Lidocaine 1% PF 5 ML VIAL ONE (08:50)
[2020-02-21] MEDS ORDERED: Succinylcholine Chloride 20 MG/ML 10 ml SYRINGE FS ONE (08:50)
[2020-02-21] MEDS ORDERED: Metoclopramide HCl 10 MG/2 ML VIAL ONE (08:50)
[2020-02-21] MEDS ORDERED: Glycopyrrolate 0.2 MG/ML 5 ML SYRINGE ONE (08:50)
[2020-02-21] MEDS ORDERED: PROPOFOL 200 MG/20 ML VIAL ONE (08:50)
[2020-02-21] MEDS ORDERED: Bupivacaine HCl 0.5%/Epinephrine 1:200,000/PF 30 ml Vial ONE (08:50)
[2020-02-21] MEDS ORDERED: Rocuronium Bromide 10 MG/ML (10ML VIAL) ONE (08:50)
[2020-02-21] MEDS ORDERED: Ondansetron PF 4 MG/2 ML Vial ONE (08:50)
--- NOTE | 2020-02-21 08:52 | CON ---
DATE OF CONSULTATION: 02/20/2020 CHIEF COMPLAINT: Abdominal pain. HISTORY OF PRESENT ILLNESS: This is a 59-year-old man, who has been having abdominal pain over the last few days. He has been having bowel movements. He has not had any nausea or vomiting. He came into the emergency room because of the abdominal pain. In the process of evaluation, which included a CT scan, it appeared that he had a near obstructing lesion in the cecal area, and he was admitted. His history is also significant for several ventral incisional hernia operations, which have failed. PAST MEDICAL HISTORY: Significant for hypertension, type 2 diabetes, ventral hernia repairs. MEDICATIONS: He takes metformin and lisinopril. ALLERGIES: NONE KNOWN. FAMILY HISTORY: His parents live in [place]. SOCIAL HISTORY: He does smoke half-pack cigarettes per day. Denies use of alcohol. PHYSICAL EXAMINATION: VITAL SIGNS: Blood pressure 157/96, respirations 16, pulse 80, temperature 98.3. GENERAL: He is above ideal body weight. HEAD, EYES, EARS, NOSE, AND THROAT: He has bloodshot eyes. No other obvious abnormalities. NECK: Without masses or lymphadenopathy. Trachea midline. LUNGS: Clear to auscultation. HEART: Regular rhythm without murmurs. ABDOMEN: Significant for midline incision with obvious herniations of the midline of fairly good size, maybe more than one defect. Abdomen is nontender to palpation. Bowel sounds are present. : Appears to be that of a normal male. EXTREMITIES: Pulses are present. No edema. No obvious deformity. NEUROLOGIC: Unremarkable. IMPRESSION: The abnormality in his colon needs to be further evaluated. In going over the history with him, it does not sound as though he is completely obstructed. I do not know whether it is possible that a colonoscopy would be feasible. I do expect that he is going to need a resection of this lesion, but at least at the present time, it does not seem as though he needs to have this done emergently today. Job ID: [id number]
--- NOTE | 2020-02-21 11:29 | PRG ---
DATE OF SERVICE: 02/21/2020 Mr. Lyle had an echocardiogram done today and had normal left ventricular function. There is very mild aortic valve stenosis, not clinically significant. Peak gradient below 20 mmHg systolic. His troponin level is also negative. It is okay to proceed to surgical therapy as being planned. I had asked the patient to follow up with us in the next couple of months. Will need another echocardiogram in 1 to 2 years. At some point, consideration for stress testing could be given in view of the baseline abnormal EKG with bifascicular block, but this is not urgent. I would proceed to surgery as your planning. Please call us if there are any difficulties. Otherwise, I would recommend the patient see us in the office within a few months. Job ID: [id number]
--- NOTE | 2020-02-21 11:29 | PRG ---
DATE OF SERVICE: 02/21/2020 ECHOCARDIOGRAM NORMAL EF AND WALL MOTION TROPONIN NEGATIVE, OK TO PROCEED TO SURGERY DISCUSSED WITH DR CASIANO Job ID: [id number] [facility]ALSavan[facility]
[2020-02-21] MEDS ORDERED: Midazolam HCl 2 mg/2 ml Vial ONE (12:07)
[2020-02-21] MEDS ORDERED: Fentanyl 100 MCG/2 ML VIAL ONE ×2 (12:07→17:24)
[2020-02-21] MEDS ORDERED: Fentanyl 250 MCG/5 ML VIAL ONE (13:21)
[2020-02-21] MEDS ORDERED: cefOXitin 2 GM in Sodium Chloride 0.9% 100 ML IVPB SCH ×2 (16:15→20:00)
[2020-02-21] MEDS ORDERED: Promethazine HCl 25 MG/ML VIAL IM PRN ×2 (16:15→16:29)
[2020-02-21] MEDS ORDERED: Ondansetron PF 4 MG/2 ML Vial IVP PRN (16:15)
[2020-02-21] MEDS ORDERED: Morphine 10 MG/ML VIAL SLOW IVP PRN (16:15)
[2020-02-21] MEDS ORDERED: Insulin Regular 300 UNITS/3 ML VIAL SC PRN (16:15)
[2020-02-21] MEDS ORDERED: hydrALAZINE 20 MG/ML VIAL SLOW IVP PRN (16:15)
[2020-02-21] MEDS ORDERED: Ondansetron HCl/PF 4 MG/2 ML Vial IVP PRN (16:29)
[2020-02-21] MEDS ORDERED: Promethazine HCl 25 MG/ML VIAL SLOW IVP PRN (16:29)
[2020-02-21] MEDS ORDERED: HYDROmorphone 2 MG/ML VIAL SLOW IVP PRN (16:29)
[2020-02-21] MEDS ORDERED: HYDROmorphone 0.5 MG/0.5 ML SYRINGE ONE ×2 (16:48→16:58)
[2020-02-21] MEDS: Sodium Chloride 0.9% 1,000 ML IV SCH (18:11)
[2020-02-21] MEDS: Ketorolac Tromethamine 30 MG/ML VIAL IVP SCH (18:35)
[2020-02-21] MEDS: cefOXitin Sodium/Dextrose,Iso 2 GM in Premix Bag 1 BAG IVPB SCH (21:18)
[2020-02-21] MEDS: Famotidine 20 MG TAB PO SCH (21:18)
[2020-02-21] MEDS: Famotidine/PF 20 mg/2ml Vial SLOW IVP SCH (21:18)
[2020-02-21] MEDS: Morphine 4 MG/ML VIAL SLOW IVP PRN (21:21)
[2020-02-22] MEDS: Ketorolac Tromethamine 30 MG/ML VIAL IVP SCH ×4 (00:33→17:16)
[2020-02-22] MEDS: Sodium Chloride 0.9% 1,000 ML IV SCH ×4 (00:34→20:38)
[2020-02-22] MEDS: Lactated Ringer's 1,000 ML IV SCH ×3 (01:05→22:45)
[2020-02-22] MEDS: cefOXitin Sodium/Dextrose,Iso 2 GM in Premix Bag 1 BAG IVPB SCH (03:40)
[2020-02-22 05:13] LABS: #Lymphocytes 1.8 thou/uL (1.20-3.40); #Monocytes 0.7 thou/uL (0.11-0.59); #Neutrophils 11.2 thou/uL (1.40-6.50); %Basophils 0.3 % (0.0-1.0); %Eosinophils 0.1 % (0.0-10.0); %Lymphocytes 13.1 % (21.0-51.0); %Monocytes 5.4 % (0.0-10.0); %Neutrophils 81.2 % (42.0-75.0); Mean Corpuscular Hemoglobin 30.4 pg (27.0-31.0); Mean Corpuscular Volume 89.6 fL (78.0-98.0); Mean Platelet Volume 8.1 fL (7.4-10.4); Platelet Count 315 thou/uL (130-400); RBC Distribution Width 12.3 % (11.5-14.5); Red Blood Cell (RBC) Count 4.28 mill/uL (4.70-6.10); White Blood Cell (WBC) Count 13.8 thou/uL (4.8-10.8)
--- NOTE | 2020-02-22 05:15 | PDOC.FM ---
- Subjective Subjective: Patient doing well this morning after ex-lap, lysis of adhesions, and R hemicolectomy with ventral hernia repair on 02/20. Reports mild abdominal pain. Reports that he is passing flatus, has not yet had a BM. - Objective Vital Signs & Weight: Vital Signs (12 hours) Temp Pulse Resp BP Pulse Ox 02/22/20 03:23 98.8 F 87 18 102/65 93 L 02/21/20 23:23 98.3 F 84 16 106/67 98 02/21/20 20:15 100 02/21/20 19:12 97.2 F L 93 18 109/66 100 02/21/20 18:09 98.3 F 79 20 128/77 100 Weight Weight 120.202 kg I&O: 02/20/20 02/21/20 02/22/20 06:59 06:59 06:59 Intake Total 3000 Output Total 100 1425 Balance -100 1575 Result Diagrams: 02/22/20 04:47 02/22/20 04:47 Phys Exam - Physical Examination Constitutional: NAD HEENT: moist MMs, sclera anicteric Neck: supple, full ROM Respiratory: no wheezing, clear to auscultation bilateral Cardiovascular: RRR, no significant murmur Gastrointestinal: positive bowel sounds midline incision c/d/i Musculoskeletal: no edema, pulses present Neurological: non-focal, moves all 4 limbs Psychiatric: normal affect, A&O x 3 Skin: no rash, normal turgor Dx/Plan (1) Large bowel obstruction Code(s): K56.609 - UNSP INTESTNL OBST, UNSP TO PARTIAL VERSUS COMPLETE OBST Status: Acute (2) HTN (hypertension) Code(s): I10 - ESSENTIAL (PRIMARY) HYPERTENSION Status: Chronic Qualifiers: Hypertension type: unspecified Qualified Code(s): I10 - Essential (primary ) hypertension (3) T2DM (type 2 diabetes mellitus) Status: Chronic Qualifiers: Diabetes mellitus alf insulin use: without alf use Diabetes mellitus complication status: without complication Qualified Code(s): E11.9 - Type 2 diabetes mellitus without complications (4) Ventral hernia Code(s): K43.9 - VENTRAL HERNIA WITHOUT OBSTRUCTION OR GANGRENE Status: Chronic Qualifiers: Obstruction and gangrene presence: without obstruction or gangrene Qualified Code(s): K43.9 - Ventral hernia without obstruction or gangrene - Plan Plan: 59 yo male with PMHx of HTN and DM who presents with abdominal pain is admitted for LBO with suspected colon mass: #Large Bowel Obstruction -Likely 2/2 mass of colon just distal to cecum -NG tube placed in ER, removed -Consult General Surgery-Dr. Choi, was called from ED, instructed to place NGT -Dr. Hogan consulted 02/19, surg 02/20: ex-lap, lysis of adhesions, R hemicolectomy, ventral hernia repair -Dr. 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 Post-op day 1 for ex-lap , right hemicolectomy, and ventral hernia repair. Gen surg consulted, appreciate recs.
[2020-02-22 05:29] LABS: Anion Gap 11 mmol/L (10-20); BUN (Urea Nitrogen) 16 mg/dL (8.4-25.7); Calc. Creatinine Clearance 190 mL/min (70-130); Calcium 7.8 mg/dL (7.8-10.44); Carbon Dioxide 25 mmol/L (22-29); Chloride 105 mmol/L (98-107); Estimated GFR-MDRD Greater than 90; Glucose 139 mg/dL (70-105); Potassium 4.2 mmol/L (3.5-5.1); Sodium 137 mmol/L (136-145)
[2020-02-22] MEDS: Famotidine 20 MG TAB PO SCH ×2 (08:59→20:38)
--- NOTE | 2020-02-22 11:03 | OP ---
DATE OF PROCEDURE: 02/21/2020 PREOPERATIVE DIAGNOSES: Near obstructing right colon mass, recurrent ventral hernia. PROCEDURES PERFORMED: Exploratory laparotomy, extensive lysis of adhesions, right hemicolectomy, and ventral hernia repair. INDICATIONS FOR PROCEDURE: A 59-year-old male, presented with bowel obstruction, was found on CT to have a mass in the upper right colon that was causing a partial obstruction. He had an elevated CEA level, never had a colonoscopy. FINDINGS: Extremely dense adhesions. There were multiple layers of mesh from previous ventral hernia repairs. There was a herniation between mesh of small bowel, that was also causing a partial obstruction. DESCRIPTION OF PROCEDURE: After informed consent was obtained, the patient was taken to the operating room and given general endotracheal anesthesia, placed in the supine position. Abdomen was prepped and draped in usual fashion. A midline incision was performed. Subcu was divided sharply. There were multiple hernias within the subcu. The mesh was encountered. This had to be opened with curved Bustillo scissors. It was very dense. There were several layers of mesh. Eventually, I was able to get through the mesh, and a very extensive careful lysis of adhesions was performed utilizing Metzenbaum scissors to separate the small bowel from the mesh. There was some what looked like polypropylene mesh. There was some that looked like PTFE mesh. Some that was more like fabric mesh. The must have been at least 3 or 4 pieces of mesh in his belly. There was 1 herniation just to the left of midline with small bowel. This had to be carefully dissected out because it was adherent to the mesh as it went through the hernia. Circumferentially, I was able to free up the anterior abdominal wall. I then mobilized the right colon to the ligament of Treitz. Looked like he had a previous right hemicolectomy or at least an appendectomy because his cecum was high. There was a 5 cm firm mass in the far right upper quadrant at the hepatic flexure. This was mobilized. The small bowel was divided utilizing a LEIDA. The mesentery was divided utilizing the LigaSure, and the right colic vessels were ligated with 2-0 silk suture. Then, the transverse colon was divided utilizing the LEIDA. The mesentery was then further divided down to the base of the right colic vessels. Again, these were ligated with 2-0 silk suture. The specimen was sent to Pathology for further analysis. Hemostasis was assured. A [id number] pro-peristaltic anastomosis was performed. Efferent and afferent bowel contents were excluded utilizing Annabelle clamps. Then, enterotomies were performed in the distal small bowel approximately 10 cm from the staple line. Then, the antimesenteric staple line was excised with the curved Bustillo scissors off the colon. The LEIDA 75 was inserted, one limb in each limb of bowel, closed, and fired. The common enterotomy was closed with a running 2-0 V-Loc PDS. Hemostasis was assured. The mesentery was closed with a running 3-0 Vicryl. The abdomen was thoroughly irrigated. Irrigation fluid was removed. Hemostasis was assured. The bowel was run again. I did not see any evidence of any enterotomy. The omentum was placed anterior. First of all, the hernia was repaired with interrupted azutzu-ec-keaphc of #1 Prolene transversely just basically reapproximating the 2 meshes to close the defect. Then, the abdominal wall was closed with a running looped #1 PDS with interrupted dfavza-ca-jlnlht of #1 Prolene. The subcu was irrigated with saline and then closed with skin naren. Sterile bandage was applied. The patient tolerated the procedure well, transferred to Recovery in good condition. Sponge and needle count verified correct x2. Job ID: [id number]
[2020-02-22] MEDS: Enoxaparin Sodium 40 MG/0.4 ML SYRINGE SC SCH (11:19)
[2020-02-22] MEDS: Morphine 4 MG/ML VIAL SLOW IVP PRN (11:21)
[2020-02-22] MEDS: Famotidine/PF 20 mg/2ml Vial SLOW IVP SCH ×2 (11:25→20:38)
--- NOTE | 2020-02-22 12:35 | PRG ---
DATE OF SERVICE: 02/22/2020 SUBJECTIVE: The patient states he feels fine. Pain is well controlled. No nausea or vomiting. Nothing at its bottom. They lost IV access. They have tried multiple times. He is going down for a PICC line about 30 minutes. OBJECTIVE: VITAL SIGNS: His temperature is 98.7, pulse 75, blood pressure 135/80. GENERAL: He is awake, alert, in no apparent distress. ABDOMEN: Soft, nondistended. The dressing looks dry. LABORATORY DATA: His white count is 13, H and H are 13 and 38, platelet count 315. Electrolytes are fine. A little bit high glucose at 139. He has put out 1025 in his urine. ASSESSMENT: Status post extensive lysis of adhesions, ventral hernia repair, and right hemicolectomy. PLAN: PICC line, discontinue Perry, ambulate. Job ID: [id number]
[2020-02-22] MEDS: HumaLOG 300 UNITS/3 ML VIAL SC PRN (13:50)
--- NOTE | 2020-02-22 14:39 | SPC ---
Exam: Ultrasound guided left upper extremity PICC line placement HISTORY: Infection. EXPOSURE: 0.3 minutes, 3503 mGy/cm2. FINDINGS: Successful left upper extremity PICC line placement with ultrasound guidance. Single-lumen 4 Wolof 50 cm catheter terminates in the right atrium. Catheter flushes and aspirates without difficulty. TECHNIQUE: Consent obtained to perform a left upper extremity PICC line placement with ultrasound george pauloilia. Left arm was prepped and draped in sterile fashion. 1% lidocaine, buffered with sodium bicarbonate, was used for local anesthesia. Under ultrasound guidance, micropuncture needle was used to cannulate the basilic vein. A 0.018 guidewire was advanced through the needle to level of the right atrium. Under fluoroscopy, the wire was advanced into the inferior vena cava to document venous access. Wire was subsequently pulled back to the right atrium. Tract was dilated. A single-lumen 4 Wolof catheter was advanced with the wire. Wire was removed. A single-lumen catheter flushes and asp irates without difficulty. 50 cm catheter length. IMPRESSION: Successful left upper extremity PICC line placement with ultrasound guidance. Transcribed Date/Time: 02/22/2020 2:51 PM
[2020-02-23] MEDS: Ketorolac Tromethamine 30 MG/ML VIAL IVP SCH ×5 (00:31→23:40)
[2020-02-23] MEDS: Morphine 4 MG/ML VIAL SLOW IVP PRN ×2 (03:18→20:01)
--- NOTE | 2020-02-23 05:25 | PDOC.FM ---
- Subjective Subjective: Patient doing well this morning. Unsure if passing flatus, no BM. Eager to eat food. Reports he walked around briefly yesterday. No complaints. - Objective Vital Signs & Weight: Vital Signs (12 hours) Temp Pulse Resp BP Pulse Ox 02/23/20 03:30 98.2 F 83 18 137/83 95 02/22/20 23:19 98.6 F 84 18 136/81 95 02/22/20 20:30 94 L 02/22/20 19:01 98.7 F 88 16 137/80 94 L Weight Weight 120.202 kg I&O: 02/21/20 02/22/20 02/23/20 06:59 06:59 06:59 Intake Total 3000 1250 1130 Output Total 1425 375 600 Balance 1575 875 530 Result Diagrams: 02/23/20 06:10 02/23/20 06:10 Phys Exam - Physical Examination Constitutional: NAD HEENT: moist MMs, sclera anicteric Neck: supple, full ROM Respiratory: no wheezing Cardiovascular: RRR holosystolic murmur Gastrointestinal: soft slightly ttp around incision; dressing c/d/i Musculoskeletal: no edema, pulses present Neurological: non-focal, moves all 4 limbs Psychiatric: normal affect, A&O x 3 Skin: no rash, normal turgor Dx/Plan (1) Large bowel obstruction Code(s): K56.609 - UNSP INTESTNL OBST, UNSP TO PARTIAL VERSUS COMPLETE OBST Status: Acute (2) HTN (hypertension) Code(s): I10 - ESSENTIAL (PRIMARY) HYPERTENSION Status: Chronic Qualifiers: Hypertension type: unspecified Qualified Code(s): I10 - Essential (primary ) hypertension (3) T2DM (type 2 diabetes mellitus) Status: Chronic Qualifiers: 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 rodent exterminator use Diabetes mellitus complication status: without complication Qualified Code(s): E11.9 - Type 2 diabetes mellitus without complications (4) Ventral hernia Code(s): K43.9 - VENTRAL HERNIA WITHOUT OBSTRUCTION OR GANGRENE Status: Chronic Qualifiers: Obstruction and gangrene presence: without obstruction or gangrene Qualified Code(s): K43.9 - Ventral hernia without obstruction or gangrene - Plan Plan: 59 yo male with PMHx of HTN and DM who presents with abdominal pain is admitted for LBO with suspected colon mass: #Large Bowel Obstruction -Likely 2/2 mass of colon just distal to cecum -NG tube placed in ER, removed -Consult General Surgery-Dr. Choi, was called from ED, instructed to place NGT -Dr. Hogan consulted 02/19, surg 02/20: ex-lap, lysis of adhesions, R hemicolectomy, ventral hernia repair -path pending -PICC line placed 02/21 -Dr. 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, echo demonstrates EF 55-60%, mild aortic stenosis, mild aortic insufficiency; rec that patient follow up with him in 2 months and have a stress test done outpatient -IVF LR @ 125 -Zofran prn for nausea -Morphine prn for pain -PT consulted to assess for PT needs s/p surgery #HTN -holding home meds while patient is NPO; BP stable overnight -hydralazine prn #DM2 -Hold home metformin -Hyperglycemia protocol in place -mild SSI & bedtime correctional SSI -Accuchecks ACHS #Tobacco abuse -smokes 0.5-1 ppd -smoking cessation counseling Diet: NPO, strict VTE ppx: SCD's Code Status: FULL Dispo: Stable, Admitted to inpatient on Surgical unit. Post-op day 2 for ex-lap , right hemicolectomy, and ventral hernia repair. Gen surg consulted, appreciate recs.
[2020-02-23] MEDS: Sodium Chloride 0.9% 1,000 ML IV SCH ×2 (06:10→08:43)
[2020-02-23] MEDS: Lactated Ringer's 1,000 ML IV SCH ×3 (06:12→20:14)
[2020-02-23 06:26] LABS: #Basophils 0.1 thou/uL (0.0-0.2); #Eosinphils 0.3 thou/uL (0.0-0.7); #Lymphocytes 2.2 thou/uL (1.20-3.40); #Monocytes 0.8 thou/uL (0.11-0.59); #Neutrophils 9.2 thou/uL (1.40-6.50); %Basophils 0.4 % (0.0-1.0); %Eosinophils 2.1 % (0.0-10.0); %Lymphocytes 17.6 % (21.0-51.0); %Monocytes 6.2 % (0.0-10.0); %Neutrophils 73.8 % (42.0-75.0); Hemoglobin 11.7 g/dL (14.0-18.0); Mean Corpuscular HGB CONC 32.4 g/dL (32.0-36.0); Mean Corpuscular Hemoglobin 29.4 pg (27.0-31.0); Mean Corpuscular Volume 90.8 fL (78.0-98.0); Mean Platelet Volume 8.2 fL (7.4-10.4); Platelet Count 317 thou/uL (130-400); RBC Distribution Width 12.3 % (11.5-14.5); Red Blood Cell (RBC) Count 3.99 mill/uL (4.70-6.10); White Blood Cell (WBC) Count 12.5 thou/uL (4.8-10.8)
[2020-02-23 06:40] LABS: Anion Gap 11 mmol/L (10-20); BUN (Urea Nitrogen) 12 mg/dL (8.4-25.7); Calc. Creatinine Clearance 207 mL/min (70-130); Calcium 7.8 mg/dL (7.8-10.44); Carbon Dioxide 25 mmol/L (22-29); Chloride 105 mmol/L (98-107); Estimated GFR-MDRD Greater than 90; Glucose 102 mg/dL (70-105); Potassium 3.8 mmol/L (3.5-5.1); Sodium 137 mmol/L (136-145)
[2020-02-23] MEDS: Famotidine/PF 20 mg/2ml Vial SLOW IVP SCH ×2 (08:44→19:58)
[2020-02-23] MEDS: Famotidine 20 MG TAB PO SCH ×2 (08:47→20:15)
--- NOTE | 2020-02-23 10:06 | PRG ---
DATE OF SERVICE: 02/23/2020 SUBJECTIVE: The patient states he is feeling fine pain is well controlled. Minimal nausea. OBJECTIVE: VITAL SIGNS: His temperature is 98.3, pulse 77, blood pressure 145/76. GENERAL: He is awake, alert. ABDOMEN: Little distended. The incision looks okay. Rare bowel sounds. LABORATORY DATA: His white count is 12.5, H and H of 11 and 36, and platelet count 317. His electrolytes are fine. His creatinine is 0.6. ASSESSMENT: Stable status post extensive lysis of adhesions and right hemicolectomy, pathology still not back. PLAN: Ambulation. He can have few ice chips. Job ID: [id number]
[2020-02-23] MEDS: Enoxaparin Sodium 40 MG/0.4 ML SYRINGE SC SCH (10:35)
[2020-02-24] MEDS: Sodium Chloride 0.9% 1,000 ML IV SCH ×3 (00:44→17:23)
[2020-02-24] MEDS: Lactated Ringer's 1,000 ML IV SCH ×3 (03:14→18:27)
[2020-02-24] MEDS: Ketorolac Tromethamine 30 MG/ML VIAL IVP SCH ×3 (05:07→17:22)
[2020-02-24 05:27] LABS: #Basophils 0.1 thou/uL (0.0-0.2); #Eosinphils 0.4 thou/uL (0.0-0.7); #Lymphocytes 1.8 thou/uL (1.20-3.40); #Monocytes 0.8 thou/uL (0.11-0.59); #Neutrophils 8.7 thou/uL (1.40-6.50); %Basophils 0.7 % (0.0-1.0); %Eosinophils 3.7 % (0.0-10.0); %Lymphocytes 15.5 % (21.0-51.0); %Monocytes 6.8 % (0.0-10.0); %Neutrophils 73.4 % (42.0-75.0); Hemoglobin 11.5 g/dL (14.0-18.0); Mean Corpuscular HGB CONC 33.8 g/dL (32.0-36.0); Mean Corpuscular Hemoglobin 30.6 pg (27.0-31.0); Mean Corpuscular Volume 90.5 fL (78.0-98.0); Mean Platelet Volume 8.1 fL (7.4-10.4); Platelet Count 322 thou/uL (130-400); RBC Distribution Width 12.2 % (11.5-14.5); Red Blood Cell (RBC) Count 3.78 mill/uL (4.70-6.10); White Blood Cell (WBC) Count 11.8 thou/uL (4.8-10.8)
[2020-02-24 05:48] LABS: Anion Gap 12 mmol/L (10-20); BUN (Urea Nitrogen) 12 mg/dL (8.4-25.7); Calc. Creatinine Clearance 243 mL/min (70-130); Calcium 7.8 mg/dL (7.8-10.44); Carbon Dioxide 23 mmol/L (22-29); Chloride 105 mmol/L (98-107); Estimated GFR-MDRD Greater than 90; Glucose 82 mg/dL (70-105); Potassium 3.6 mmol/L (3.5-5.1); Sodium 136 mmol/L (136-145)
--- NOTE | 2020-02-24 05:49 | PDOC.FM ---
- Subjective Subjective: Patient doing great this morning. Reports he tolerated the ice chips well yesterday. Had one small BM last night and has been passing flatus. Abdominal pain controlled. - Objective Vital Signs & Weight: Vital Signs (12 hours) Temp Pulse Resp BP Pulse Ox 02/24/20 03:10 97.9 F 63 18 139/75 98 02/23/20 23:15 97.8 F 67 18 132/81 96 02/23/20 20:10 96 02/23/20 19:06 98.5 F 77 18 148/80 H 96 Weight Weight 120.202 kg I&O: 02/22/20 02/23/20 02/24/20 06:59 06:59 06:59 Intake Total 1250 2570 200 Output Total 375 1025 450 Balance 875 1545 -250 Result Diagrams: 02/24/20 05:15 02/24/20 05:15 Phys Exam - Physical Examination Constitutional: NAD HEENT: moist MMs, sclera anicteric Neck: supple, full ROM Respiratory: no wheezing, clear to auscultation bilateral Cardiovascular: RRR, no significant murmur Gastrointestinal: soft, positive bowel sounds incision c/d/i Musculoskeletal: no edema, pulses present Neurological: non-focal, moves all 4 limbs Psychiatric: normal affect, A&O x 3 Skin: no rash, normal turgor Dx/Plan (1) Large bowel obstruction Code(s): K56.609 - UNSP INTESTNL OBST, UNSP TO PARTIAL VERSUS COMPLETE OBST Status: Acute (2) HTN (hypertension) Code(s): I10 - ESSENTIAL (PRIMARY) HYPERTENSION Status: Chronic Qualifiers: Hypertension type: unspecified Qualified Code(s): I10 - Essential (primary ) hypertension (3) T2DM (type 2 diabetes mellitus) Status: Chronic Qualifiers: Diabetes mellitus jail insulin use: without jail use Diabetes mellitus complication status: without complication Qualified Code(s): E11.9 - Type 2 diabetes mellitus without complications (4) Ventral hernia Code(s): K43.9 - VENTRAL HERNIA WITHOUT OBSTRUCTION OR GANGRENE Status: Chronic Qualifiers: Obstruction and gangrene presence: without obstruction or gangrene Qualified Code(s): K43.9 - Ventral hernia without obstruction or gangrene - Plan Plan: 59 yo male with PMHx of HTN and DM who presents with abdominal pain is admitted for LBO with suspected colon mass: #Large Bowel Obstruction -Likely 2/2 mass of colon just distal to cecum -NG tube placed in ER, removed -Consult General Surgery-Dr. Choi, was called from ED, instructed to place NGT -Dr. Hogan consulted 02/19, surg 02/20: ex-lap, lysis of adhesions, R hemicolectomy, ventral hernia repair -path pending -PICC line placed 02/21 -Dr. 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, echo demonstrates EF 55-60%, mild aortic stenosis, mild aortic insufficiency; rec that patient follow up with him in 2 months and have a stress test done outpatient -IVF LR @ 125 -Zofran prn for nausea -Morphine prn for pain -PT rec patient go home with family support when ready #HTN -holding home meds while patient is NPO; BP stable overnight -hydralazine prn #DM2 -Hold home metformin -Hyperglycemia protocol in place -mild SSI & bedtime correctional SSI -Accuchecks ACHS #Tobacco abuse -smokes 0.5-1 ppd -smoking cessation counseling Diet: NPO, strict; ice cips VTE ppx: SCD's Code Status: FULL Dispo: Stable, Admitted to inpatient on Surgical unit. Post-op day 3 for ex-lap , right hemicolectomy, and ventral hernia repair. Gen surg consulted, appreciate recs.
[2020-02-24] MEDS: Famotidine 20 MG TAB PO SCH ×2 (08:44→20:36)
[2020-02-24] MEDS: Enoxaparin Sodium 40 MG/0.4 ML SYRINGE SC SCH (08:48)
[2020-02-24] MEDS: Famotidine/PF 20 mg/2ml Vial SLOW IVP SCH ×2 (08:48→20:37)
--- NOTE | 2020-02-24 09:17 | PRG ---
DATE OF SERVICE: 02/24/2020 SUBJECTIVE: The patient feels much better. He is passing gas, small bowel movement. Pain is minimal. He is hungry. OBJECTIVE: VITAL SIGNS: His temperature is 98.2, pulse 61, blood pressure 136/84. GENERAL: He looks good. ABDOMEN: Soft, nondistended, and nontender. The incision is healing well. ASSESSMENT: Doing well. PLAN: Clear liquid diet. Advance to full liquids as tolerated. Job ID: [id number]
[2020-02-25] MEDS: Lactated Ringer's 1,000 ML IV SCH (04:04)
[2020-02-25] MEDS: Sodium Chloride 0.9% 1,000 ML IV SCH ×2 (04:26→11:07)
[2020-02-25] MEDS: Acetaminophen 325 MG TAB PO PRN ×2 (04:26→12:55)
[2020-02-25 04:56] LABS: #Basophils 0.1 thou/uL (0.0-0.2); #Eosinphils 0.4 thou/uL (0.0-0.7); #Lymphocytes 1.7 thou/uL (1.20-3.40); #Monocytes 0.8 thou/uL (0.11-0.59); #Neutrophils 7.2 thou/uL (1.40-6.50); %Basophils 0.5 % (0.0-1.0); %Eosinophils 3.9 % (0.0-10.0); %Monocytes 8.1 % (0.0-10.0); %Neutrophils 70.4 % (42.0-75.0); Hemoglobin 10.9 g/dL (14.0-18.0); Mean Corpuscular HGB CONC 33.9 g/dL (32.0-36.0); Mean Corpuscular Hemoglobin 30.4 pg (27.0-31.0); Mean Corpuscular Volume 89.7 fL (78.0-98.0); Mean Platelet Volume 7.7 fL (7.4-10.4); Platelet Count 351 thou/uL (130-400); RBC Distribution Width 12.1 % (11.5-14.5); Red Blood Cell (RBC) Count 3.58 mill/uL (4.70-6.10); White Blood Cell (WBC) Count 10.2 thou/uL (4.8-10.8)
[2020-02-25 05:30] LABS: Anion Gap 11 mmol/L (10-20); BUN (Urea Nitrogen) 7 mg/dL (8.4-25.7); Calc. Creatinine Clearance 231 mL/min (70-130); Calcium 7.9 mg/dL (7.8-10.44); Carbon Dioxide 25 mmol/L (22-29); Chloride 103 mmol/L (98-107); Estimated GFR-MDRD Greater than 90; Glucose 119 mg/dL (70-105); Potassium 3.4 mmol/L (3.5-5.1); Sodium 136 mmol/L (136-145)
--- NOTE | 2020-02-25 05:36 | PDOC.FM ---
- Subjective Subjective: Patient doing well this morning. Has not had any other BM. Continues to pass flatus. Endorses mild ttp incision site, otherwise denies abdominal pain. Using the organic lab worker, discussed adenocarcinoma diagnosis. Discussed that 03/13 lymph nodes were positive. Discussed that medical team would be working with Dr. Hogan and likely oncology to help form a treatment plan. Patient agreeable with plan of care. - Objective Vital Signs & Weight: Vital Signs (12 hours) Temp Pulse Resp BP Pulse Ox 02/25/20 04:38 98.8 F 74 18 151/77 H 95 02/25/20 00:30 98.9 F 74 18 150/73 H 98 02/24/20 21:03 98.3 F 89 18 167/86 H 98 Weight Weight 120.202 kg I&O: 02/23/20 02/24/20 02/25/20 06:59 06:59 06:59 Intake Total 2570 1640 2400 Output Total 1025 800 275 Balance 7078 840 1412 Result Diagrams: 02/25/20 04:28 02/25/20 04:28 Phys Exam - Physical Examination Constitutional: NAD HEENT: moist MMs, sclera anicteric Neck: supple, full ROM Respiratory: no wheezing, clear to auscultation bilateral Cardiovascular: RRR holosystolic murmur Gastrointestinal: soft, positive bowel sounds midline incision slightly ttp near the top Musculoskeletal: no edema, pulses present Neurological: non-focal, moves all 4 limbs Psychiatric: normal affect, A&O x 3 Skin: no rash, normal turgor Dx/Plan (1) Large bowel obstruction Code(s): K56.609 - UNSP INTESTNL OBST, UNSP TO PARTIAL VERSUS COMPLETE OBST Status: Acute (2) HTN (hypertension) Code(s): I10 - ESSENTIAL (PRIMARY) HYPERTENSION Status: Chronic Qualifiers: Hypertension type: unspecified Qualified Code(s): I10 - Essential (primary ) hypertension (3) T2DM (type 2 diabetes mellitus) Status: Chronic 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 Diabetes mellitus complication status: without complication Qualified Code(s): E11.9 - Type 2 diabetes mellitus without complications (4) Ventral hernia Code(s): K43.9 - VENTRAL HERNIA WITHOUT OBSTRUCTION OR GANGRENE Status: Chronic Qualifiers: Obstruction and gangrene presence: without obstruction or gangrene Qualified Code(s): K43.9 - Ventral hernia without obstruction or gangrene - Plan Plan: 59 yo male with PMHx of HTN and DM who presents with abdominal pain is admitted for LBO with suspected colon mass: #Large Bowel Obstruction -Likely 2/2 mass of colon just distal to cecum -NG tube placed in ER, removed -Consult General Surgery-Dr. Choi, was called from ED, instructed to place NGT -Dr. 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, echo demonstrates EF 55-60%, mild aortic stenosis, mild aortic insufficiency; rec that patient follow up with him in 2 months and have a stress test done outpatient -D/C fluids as patient is tolerating PO -Zofran prn for nausea -Morphine prn for pain -PT rec patient go home with family support when ready #HTN -restart home meds today -hydralazine prn #DM2 -Hold home metformin -Hyperglycemia protocol in place -mild SSI & bedtime correctional SSI -Accuchecks ACHS #Tobacco abuse -smokes 0.5-1 ppd -smoking cessation counseling Diet: Full liquids, advance as tolerated VTE ppx: SCD's Code Status: FULL Dispo: Stable, Admitted to inpatient on Surgical unit. Post-op day 4 for ex-lap , right hemicolectomy, and ventral hernia repair. Gen surg consulted, appreciate recs. Will possibly plan to consult oncology today vs recommend outpatient appointment.
[2020-02-25] MEDS ORDERED: Potassium Chloride 20 MEQ TAB PO SCH (08:30)
[2020-02-25] MEDS ORDERED: metFORMIN XR 500 MG TAB PO SCH (09:00)
[2020-02-25] MEDS ORDERED: Lisinopril 10 MG TAB PO SCH (09:00)
[2020-02-25] MEDS: Famotidine 20 MG TAB PO SCH (10:00)
[2020-02-25] MEDS: Famotidine/PF 20 mg/2ml Vial SLOW IVP SCH (10:00)
[2020-02-25] MEDS: Enoxaparin Sodium 40 MG/0.4 ML SYRINGE SC SCH (10:00)
[2020-02-25 10:44] VITALS: BP 144/78; TEMP 98.4
[2020-02-25] MEDS ORDERED: Iopamidol-370 76% 500 ML 1 ML ONE (12:30)
--- NOTE | 2020-02-25 12:36 | CON ---
DATE OF CONSULTATION: REASON FOR CONSULTATION: Colon cancer. HISTORY OF PRESENT ILLNESS: A 59-year-old male with history of diabetes, hypertension, and tobacco abuse, presenting to the hospital with persistent abdominal pain. The patient states 1 week prior to admission, began having right-sided abdominal pain that eventually got so severe and brought him into the hospital. At that time, he states he had been having constipation and then had gone a week without a bowel movement, but was still passing gas. He denies any weight loss over the last few months. He had some mildly black stools, but not tarry and no blood in the stool. He denies any colonoscopy in the past. Denies any family history of cancer that he is aware of. The patient was evaluated by Dr. Hogan, who performed a hemicolectomy on February 20 showing a T3 N2a colon cancer consistent with stage III colon cancer. The patient had presented with a bowel obstruction due to the size of the mass and had NG tube placement at the beginning. He is recovering surgery well and has no specific complaints today. REVIEW OF SYSTEMS: Ten-point review of systems negative except as per HPI. PAST MEDICAL HISTORY: Diabetes, hypertension. FAMILY HISTORY: No cancer. SOCIAL HISTORY: Smokes 1 pack per day x30 years, quit for few years and picked up smoking again. Currently, half pack per day. CURRENT MEDICATIONS: Reviewed. PHYSICAL EXAMINATION: VITAL SIGNS: Vital signs are stable. GENERAL APPEARANCE: The patient is walking around in the room and is in no acute distress. HEENT: Normocephalic and atraumatic. No scleral icterus is noted. Respirations are nonlabored. CARDIAC: No tachycardia noted. ABDOMEN: Soft, obese. Central wound with naren in place. Appears to be healing appropriately. EXTREMITIES: Moves all extremities. NEUROLOGIC: Cranial nerves 2 through 12 are grossly intact. PSYCHIATRIC: Awake, alert, and oriented x3. LABORATORY DATA: White blood cells 10.2, hemoglobin 10.9, platelets 351. Sodium 136, potassium 3.4, BUN 7, creatinine 0.60. Preoperative CEA was 5.89 and postoperative CEA 2.73. ASSESSMENT AND PLAN: A 59-year-old male with stage III colon cancer, status post resection after initial presentation with bowel obstruction. The patient has at least high risk stage III colon cancer based on four lymph nodes being positive; however, does require further workup to rule out metastatic disease. We will send for CT chest at this time and if no mets are seen, I would recommend adjuvant chemotherapy with FOLFOX x12 cycles to complete 6 months of treatment. He will require a MediPort regardless and we will let Dr. Hogan know this. They can be placed any time in the next 3 weeks. We will plan to see patient in the outpatient setting in a couple of weeks and start chemotherapy 4 to 5 weeks postop. The patient acknowledged understanding of the plan. Thank you for this consult. Job ID: [id number] [facility]
--- NOTE | 2020-02-25 12:52 | CT ---
CHEST CT: 02/25/2020 COMPARISON: None. HISTORY: Colon cancer, assess for metastatic disease. TECHNIQUE: Axial CT imaging at 5 mm intervals from the thoracic inlet through the upper abdomen with IV contrast. Coronal and sagittal reformatted imaging obtained. FINDINGS: Cutaneous naren are noted within the anterior upper abdomen with a few adjacent foci of free intrap eritoneal air consistent with recent abdominal surgery. There is a left upper extremity PICC present with distal tip overlying the proximal aspect of the superior vena cava. There is no lymphadenopathy noted within the chest. Coronary arterial calcification is noted. No pleural, pericardial, or mediastinal fluid is noted. There is an oval low-density lesion in the region of the costovertebral junction on the left at the T 10 level measuring 2.9 x 2.0 cm. Its Hounsfield units are approximately 1-2, suggesting a posterior mediastinal cyst. This is similar when compared to prior CT of the abdomen performed in 2006. No endobronchial lesion is apparent. Linear increased density in the inferior medial left lower lobe suggests scar. No discrete/dominant p ulmonary parenchymal mass lesion or nodule is noted on the left. On the right, within the medial aspect of the superior segment right lower lobe, there is a pulmonary nodule measuring approximately 4 mm. There is a small anterior right middle lobe nodule on image 33 measuring approximately 4 mm. The osseous structures demonstrate no acute findings. IMPRESSION: Subcentimeter nonspecific pulmonary nodules. Given provided history of colon cancer, follow-up cipriano brock is advised in 3-6 months. Transcribed Date/Time: 02/25/2020 12:59 PM
--- NOTE | 2020-02-25 12:59 | DIS ---
DATE OF ADMISSION: 02/20/2020 DATE OF DISCHARGE: 02/25/2020 DISCHARGE DIAGNOSES: T3 N1 colon cancer of hepatic flexure with 4 of 29 lymph nodes positive, near obstructing with recurrent ventral hernias and some incarceration of small bowel, extensive adhesions. PROCEDURES DURING ADMISSION: Exploratory laparotomy, lysis of adhesions, right hemicolectomy, and repair of recurrent ventral hernia. HOSPITAL COURSE: The patient was admitted, taken to the operating room, where he underwent the surgery. Postoperatively, he had an ileus for a while. Bowel function returned. Diet advanced. Pathology came back with a 7 cm tumor, 4 of 29 lymph nodes positive, T3 N1. We will consult Oncology. He will follow up with me next week for staple removal. Job ID: [id number]
== END 2020-02-25 13:13 | disposition home or self-care (01) | DRG 330 ==
LOC: ERS 00:16 → SURG A 01:50
PROVIDERS: ADMIT Family Medicine; ATTEND Family Medicine
PROC: 0DTF0ZZ Resection of Right Large Intestine, Open Approach (ICD-10-PCS; principal; 2020-02-21)
PROC: 0WUF0JZ Supplement Abdominal Wall with Synthetic Substitute, Open Approach (ICD-10-PCS; 2020-02-21)
PROC: 02HV33Z Insertion of Infusion Device into Superior Vena Cava, Percutaneous Approach (ICD-10-PCS; 2020-02-22)
PROC: B548ZZA Ultrasonography of Superior Vena Cava, Guidance (ICD-10-PCS; 2020-02-22)
DX: C18.3 Malignant neoplasm of hepatic flexure (principal); I45.2 Bifascicular block; K56.7 Ileus, unspecified; K43.0 Incisional hernia with obstruction, without gangrene; I10 Essential (primary) hypertension; E11.9 Type 2 diabetes mellitus without complications; F17.210 Nicotine dependence, cigarettes, uncomplicated; E66.9 Obesity, unspecified; I35.0 Nonrheumatic aortic (valve) stenosis; Z79.899 Other long term (current) drug therapy; Z79.84 Long term (current) use of oral hypoglycemic drugs; Z68.37 Body mass index [BMI] 37.0-37.9, adult
CPT/HCPCS: 36415; 36416; 36569; 71045; 71260; 74177; 80048; 80053; 81003; 82378; 83690; 84484; 85025; 88309; 88313; 93005; 93010; 93306; 96361; 96374; 96375; 99406; C1751; J0670; J0694; J1170; J1644; J1650; J1885; J2001; J2250; J2270; J2405; J2704; J2765; J3010; Q9967; S0028

== ENCOUNTER 2020-03-10 05:49 | Day surgery (SDC) | payer BC ==
[2020-03-10] MEDS ORDERED: Lidocaine 1% w/Epinephrine 1:100K 20 ML VIAL ONE (06:33)
[2020-03-10] MEDS ORDERED: Bupivacaine 0.25% HCL 30 ML VIAL ONE (06:33)
[2020-03-10 06:44] LABS: #Basophils 0.1 thou/uL (0.0-0.2); #Eosinphils 0.4 thou/uL (0.0-0.7); #Lymphocytes 2.8 thou/uL (1.20-3.40); #Monocytes 0.5 thou/uL (0.11-0.59); #Neutrophils 6.2 thou/uL (1.40-6.50); %Eosinophils 3.8 % (0.0-10.0); %Lymphocytes 27.8 % (21.0-51.0); %Neutrophils 62.4 % (42.0-75.0); Hemoglobin 13.7 g/dL (14.0-18.0); Mean Corpuscular HGB CONC 33.1 g/dL (32.0-36.0); Mean Corpuscular Hemoglobin 30.3 pg (27.0-31.0); Mean Corpuscular Volume 91.5 fL (78.0-98.0); Mean Platelet Volume 7.3 fL (7.4-10.4); Platelet Count 544 thou/uL (130-400); RBC Distribution Width 12.6 % (11.5-14.5); Red Blood Cell (RBC) Count 4.51 mill/uL (4.70-6.10)
[2020-03-10] MEDS ORDERED: Fentanyl 100 MCG/2 ML VIAL ONE (06:45)
[2020-03-10] MEDS ORDERED: Famotidine/PF 20 mg/2ml Vial ONE (06:45)
[2020-03-10] MEDS ORDERED: Midazolam HCl 2 mg/2 ml Vial ONE (06:45)
[2020-03-10] MEDS ORDERED: Propofol 500 MG/50 ML VIAL ONE (06:46)
[2020-03-10 07:09] LABS: ALT (SGPT) 10 U/L (8-55); AST (SGOT) 10 U/L (5-34); Alkaline Phosphatase 121 U/L (40-110); Anion Gap 15 mmol/L (10-20); BUN (Urea Nitrogen) 33 mg/dL (8.4-25.7); Bilirubin, Total 0.3 mg/dL (0.2-1.2); Calc. Creatinine Clearance 0 mL/min (70-130); Calcium 9.8 mg/dL (7.8-10.44); Carbon Dioxide 23 mmol/L (22-29); Chloride 104 mmol/L (98-107); Estimated GFR-MDRD 67; Glucose 128 mg/dL (70-105); Sodium 137 mmol/L (136-145)
[2020-03-10] MEDS ORDERED: PHENYLEPHRINE-NS 100 MCG/ML 10 ML SYRINGE ONE (07:30)
[2020-03-10] MEDS ORDERED: Lidocaine 1% PF 5 ML VIAL ONE (07:30)
[2020-03-10] MEDS ORDERED: Ondansetron PF 4 MG/2 ML Vial ONE (07:30)
[2020-03-10] MEDS ORDERED: Metoclopramide HCl 10 MG/2 ML VIAL ONE (07:30)
[2020-03-10] MEDS ORDERED: PROPOFOL 200 MG/20 ML VIAL ONE (07:30)
--- NOTE | 2020-03-10 08:30 | RAD ---
CHEST 1 VIEW PORTABLE: HISTORY: Postoperative MediPort placement. COMPARISON: 02/20/2020. FINDINGS: Right central line and injection port. No pneumothorax or pleural effusion. Mild increased markings bilaterally, stable. IMPRESSION: Right central line injection port. No pneumothorax or other acute process. POS: [facility]
--- NOTE | 2020-03-10 09:26 | OP ---
DATE OF PROCEDURE: 03/10/2020 PREOPERATIVE DIAGNOSIS: Metastatic colon cancer. PROCEDURE PERFORMED: MediPort placement. INDICATIONS: This is a 59-year-old male, who had a near obstructing colon cancer with positive lymph nodes, needs postoperative chemo. FINDINGS: Placed in right IJ. DESCRIPTION OF PROCEDURE: After informed consent was obtained, the patient was taken to the operating room, given total IV anesthesia, placed in the supine position. His chest and neck were prepped and draped in usual fashion. Then, the patient was placed in Trendelenburg position. Local anesthesia infiltrated subcutaneously and deep. An introducer needle was inserted in right neck with good backflow of venous blood. J-wire threaded easily. Fluoroscopy was performed, showed good placement in the superior vena cava. Then, the skin and subcu anesthetized on the right chest wall. A transverse chest wall incision was performed. Subcu was divided sharply down to the pectoralis fascia and a pocket was created on the pectoralis fascia. Local then also anesthetized in the potential tract. Incision made at where the wire was coming out of the skin and then a tunneling device was used to tunnel between the 2 incisions. Catheter was brought through the tunnel. It was connected to the MediPort. The system was flushed with heparinized saline. The MediPort was sutured to the pectoralis fascia with interrupted 2-0 Prolene suture. Then, the catheter was cut to size. The Peel-Away introducer inserted over the wire. The wire was removed. Then, the catheter inserted through the Peel-Away introducer and the Peel-Away introducer removed. Again, fluoroscopy was used, showed good placement in the superior vena cava. The system was accessed with the Malik needle, good backflow of venous blood, flushed again with heparinized saline. The subcu was reapproximated with interrupted 3-0 Vicryl. Skin closed with a running subcuticular 4-0 Rapide. Dermabond applied. The patient tolerated the procedure well, transferred to Recovery in good condition. Sponge and needle count verified correct x2. Job ID: [id number]
--- NOTE | 2020-03-11 09:47 | EKG ---
Test Reason : PREOP Blood Pressure : / mmHG Vent. Rate : 063 BPM Atrial Rate : 063 BPM P-R Int : 192 ms QRS Dur : 174 ms QT Int : 472 ms P-R-T Axes : 045 -59 010 degrees QTc Int : 483 ms Normal sinus rhythm Right bundle branch block Left anterior fascicular block Bifascicular block Abnormal ECG When compared with ECG of 20-FEB-2020 13:43, (Unconfirmed) No significant change was found Confirmed by DR. Ofelia BAILEY ([id number]) on 03/11/2020 9:47:15 AM Referred By: [place] Confirmed By:DR. Ofelia BAILEY
== END 2020-03-10 09:40 | disposition home or self-care (01) ==
LOC: SDC 05:49
PROVIDERS: ATTEND Surgery
PROC: 02HV33Z Insertion of Infusion Device into Superior Vena Cava, Percutaneous Approach (ICD-10-PCS; principal; 2020-03-10)
DX: C18.9 Malignant neoplasm of colon, unspecified (principal); C77.9 Secondary and unspecified malignant neoplasm of lymph node, unspecified; Z79.84 Long term (current) use of oral hypoglycemic drugs; Z79.899 Other long term (current) drug therapy; Z90.49 Acquired absence of other specified parts of digestive tract
CPT/HCPCS: 36415; 71045; 80053; 85025; 93005; 93010; C1788; J0690; J1642; J2001; J2250; J2405; J2704; J2765; J3010; S0020; S0028

== ENCOUNTER 2020-12-18 09:14 | Outpatient (CLI) | payer BC ==
[2020-12-18 09:48] LABS: Estimated GFR-MDRD - POC Greater than 90
--- NOTE | 2020-12-18 10:18 | CT ---
EXAM: CT of the chest with contrast CT of the abdomen and pelvis with contrast HISTORY: Colon cancer COMPARISON: 02/20/2020 and 02/25/2020 TECHNIQUE: 1. Multiple contiguous axial images were obtained in a CT the chest with contrast. Coronal and sagitt al reformats were performed. 2. Multiple contiguous axial images were obtained and a CT of the abdomen and pelvis with contrast. C oronal and sagittal reformats were performed. FINDINGS: CT CHEST: HEART: Normal in size without focal cardiac abnormality. Calcifications in the coronary arteries and aorta. MEDIASTINUM: No hilar or mediastinal lymphadenopathy. LUNGS: No focal infiltrates. There is a very subtle stable nodule in the superior aspect of the right lower lobe measuring 5 mm in size on image 17 of 51. An area of nodularity in the right middle lobe on image 24 of 51 measures 2 to 3 mm in size and is stable. No other pulmonary nodules are seen. PLEURAL SPACE: No pneumothorax or pleural effusion. There is a stable cystic lesion along the left po sterior pleura that is well-circumscribed measuring 3.0 cm in greatest dimension. CHEST WALL SOFT TISSUES: There is a right-sided Mediport with its tip in the superior vena cava. CT ABDOMEN/PELVIS: ABDOMEN: LIVER: within normal limits. BILE DUCTS: Normal caliber. GALLBLADDER: No calcified gallstones. Normal caliber wall. PANCREAS: within normal limits. SPLEEN: within normal limits. ADRENALS: within normal limits. KIDNEYS: within normal limits. PELVIS: REPRODUCTIVE ORGANS: No pelvic masses. URETERS: within normal limits. BLADDER: within normal limits. PERITONEUM: No ascites or free air, no fluid collection. BOWEL: The patient is status post right hemicolectomy. Normal caliber small bowel. Scattered divertic karthik in the remaining left colon. MESENTERY AND RETROPERITONEUM: No enlarged mesenteric or retroperitoneal lymph nodes. VESSELS: Normal. ABDOMINAL WALL: within normal limits. OSSEOUS STRUCTURES: Degenerative changes in the spine. IMPRESSION: 1. Stable right-sided pulmonary nodules 2. No intra-abdominal evidence of recurrent or metastatic disease. 3. Diverticulosis 4. Stable cystic lesion along the left posterior pleura in the chest which could represent a mediasti nal cyst.
[2020-12-18] MEDS ORDERED: Iopamidol 370 76% 100 ML VIAL ONE (10:23)
== END 2020-12-18 09:15 | disposition home or self-care (01) ==
LOC: CT 09:14
PROVIDERS: ATTEND Internal Medicine Hematology & Oncology
DX: C18.2 Malignant neoplasm of ascending colon (principal); R91.8 Other nonspecific abnormal finding of lung field; K57.30 Diverticulosis of large intestine without perforation or abscess without bleeding; J98.8 Other specified respiratory disorders
CPT/HCPCS: 71260; 74177; 82565; Q9967

== ENCOUNTER 2021-05-08 12:01 | Outpatient (CLI) | payer BC ==
[2021-05-08 14:11] LABS: #Basophils 0.1 10x3/uL (0.0-0.2); #Eosinphils 0.1 10x3/uL (0.0-0.5); #Monocytes 0.8 10x3/uL (0.0-1.1); #Neutrophils 9.9 10x3/uL (1.5-8.4); %Basophils 0.5 % (0.0-2.0); %Eosinophils 0.6 % (0.0-6.0); %Monocytes 5.6 % (0.0-10.0); %Neutrophils 69.8 % (40.0-75.0); Hemoglobin 16.2 g/dL (13.5-17.5); Mean Corpuscular HGB CONC 34.5 g/dL (32.0-36.0); Mean Corpuscular Hemoglobin 30.9 pg (27.0-33.0); Mean Corpuscular Volume 89.5 fl (81.2-95.1); Mean Platelet Volume 10.5 fl (7.4-10.4); Platelet Count 319 10x3/uL (150-450); RBC Distribution Width 12.8 % (11.5-14.5); Red Blood Cell (RBC) Count 5.25 10x6/uL (4.32-5.72); White Blood Cell (WBC) Count 14.2 10x3/uL (3.5-10.5)
[2021-05-08 14:25] LABS: ALT (SGPT) 16 U/L (8-55); AST (SGOT) 15 U/L (5-34); Alkaline Phosphatase 166 U/L (40-110); Anion Gap 15 mmol/L (10-20); BUN (Urea Nitrogen) 16 mg/dL (8.4-25.7); Bilirubin, Total 0.4 mg/dL (0.2-1.2); Calc. Creatinine Clearance 0 mL/min (70-130); Calcium 9.4 mg/dL (7.8-10.44); Carbon Dioxide 24 mmol/L (22-29); Chloride 101 mmol/L (98-107); Globulin 3.1 g/dL (2.4-3.5); Glucose 217 mg/dL (70-105); Potassium 4.6 mmol/L (3.5-5.1); Protein, Total 7.1 g/dL (6.0-8.3); Sodium 135 mmol/L (136-145)
[2021-05-08 22:05] LABS: SARS-CoV-2 PCR by NAA Not Detected (NotDetected)
== END 2021-05-08 12:02 | disposition home or self-care (01) ==
LOC: LABBT 12:01
PROVIDERS: ATTEND Surgery
DX: Z01.818 Encounter for other preprocedural examination (principal); L08.89 Other specified local infections of the skin and subcutaneous tissue; Z20.822 Contact with and (suspected) exposure to COVID-19
CPT/HCPCS: 80053; 85025; 93005; 93010; U0003; U0005

== ENCOUNTER 2021-05-11 06:12 | Day surgery (SDC) | payer BC ==
[2021-05-10 10:02] VITALS: BMI 38.9
[2021-05-11] MEDS ORDERED: Fentanyl 100 MCG/2 ML VIAL ONE ×4 (07:12→09:20)
[2021-05-11] MEDS ORDERED: PHENYLEPHRINE-NS 100 MCG/ML 10 ML SYRINGE ONE (07:41)
[2021-05-11] MEDS ORDERED: Lidocaine 1% PF 5 ML VIAL ONE (07:41)
[2021-05-11] MEDS ORDERED: ePHEDrine Sulfate 50 MG/10 ML VIAL ONE (07:41)
[2021-05-11] MEDS ORDERED: Rocuronium Bromide 10 MG/ML (10ML VIAL) ONE (07:41)
[2021-05-11] MEDS ORDERED: Ondansetron PF 4 MG/2 ML Vial ONE (07:41)
[2021-05-11] MEDS ORDERED: PROPOFOL 200 MG/20 ML VIAL ONE (07:41)
[2021-05-11] MEDS ORDERED: Lidocaine 1% w/Epinephrine 1:100K 20 ML VIAL ONE (07:52)
[2021-05-11] MEDS ORDERED: Bupivacaine 0.25% HCL 30 ML VIAL ONE (07:52)
[2021-05-11] MEDS ORDERED: SUGAMMADEX SODIUM 500 MG/5 ML VIAL ONE (08:41)
[2021-05-11] MEDS ORDERED: HYDROcodone/Acetaminophen 5/325 mg Tablet ONE (10:54)
== END 2021-05-11 12:00 | disposition home or self-care (01) ==
LOC: SDC 06:12
PROVIDERS: ATTEND Surgery
PROC: 0WPF0JZ Removal of Synthetic Substitute from Abdominal Wall, Open Approach (ICD-10-PCS; principal; 2021-05-11)
DX: T85.79XA Infection and inflammatory reaction due to other internal prosthetic devices, implants and grafts, initial encounter (principal); K66.0 Peritoneal adhesions (postprocedural) (postinfection); E11.9 Type 2 diabetes mellitus without complications; F17.210 Nicotine dependence, cigarettes, uncomplicated; Z85.038 Personal history of other malignant neoplasm of large intestine; Z79.899 Other long term (current) drug therapy; Z90.49 Acquired absence of other specified parts of digestive tract; Z98.890 Other specified postprocedural states
CPT/HCPCS: 87070; 87205; 88305; J0690; J2405; J2704; J3010; S0020

== ENCOUNTER 2021-10-22 08:39 | Outpatient (CLI) | payer BC ==
[2021-10-22] MEDS ORDERED: Iopamidol-370 76% 500 ML 1 ML ONE (13:17)
== END 2021-10-22 08:40 | disposition home or self-care (01) ==
LOC: BICCT 08:39
PROVIDERS: ATTEND Internal Medicine Hematology & Oncology
DX: C18.2 Malignant neoplasm of ascending colon (principal); M85.88 Other specified disorders of bone density and structure, other site
CPT/HCPCS: 71260; 74177

== ENCOUNTER 2022-01-02 15:02 | Outpatient (CLI) | payer BC ==
[2022-01-02 15:53] LABS: #Basophils 0.1 10x3/uL (0.0-0.2); #Eosinphils 0.2 10x3/uL (0.0-0.5); #Monocytes 0.8 10x3/uL (0.0-1.1); #Neutrophils 8.6 10x3/uL (1.5-8.4); %Basophils 0.6 % (0.0-2.0); %Eosinophils 1.3 % (0.0-6.0); %Monocytes 6.1 % (0.0-10.0); %Neutrophils 67.7 % (40.0-75.0); Hemoglobin 15.2 g/dL (13.5-17.5); Mean Corpuscular HGB CONC 34.3 g/dL (32.0-36.0); Mean Corpuscular Hemoglobin 30.3 pg (27.0-33.0); Mean Corpuscular Volume 88.2 fl (81.2-95.1); Mean Platelet Volume 10.1 fl (7.4-10.4); Platelet Count 356 10x3/uL (150-450); RBC Distribution Width 12.5 % (11.5-14.5); Red Blood Cell (RBC) Count 5.02 10x6/uL (4.32-5.72); White Blood Cell (WBC) Count 12.7 10x3/uL (3.5-10.5)
[2022-01-02 16:24] LABS: ALT (SGPT) 14 U/L (8-55); AST (SGOT) 12 U/L (5-34); Albumin 4.1 g/dL (3.5-5.0); Alkaline Phosphatase 191 U/L (40-110); Anion Gap 16 mmol/L (10-20); BUN (Urea Nitrogen) 17 mg/dL (8.4-25.7); Bilirubin, Total 0.3 mg/dL (0.2-1.2); Calc. Creatinine Clearance 0 mL/min (70-130); Calcium 9.8 mg/dL (7.8-10.44); Carbon Dioxide 26 mmol/L (22-29); Chloride 98 mmol/L (98-107); Globulin 3.1 g/dL (2.4-3.5); Glucose 360 mg/dL (70-105); Potassium 4.9 mmol/L (3.5-5.1); Protein, Total 7.2 g/dL (6.0-8.3); Sodium 135 mmol/L (136-145)
[2022-01-02 23:28] LABS: SARS-CoV-2 PCR by NAA Not Detected (NotDetected)
== END 2022-01-02 15:03 | disposition home or self-care (01) ==
LOC: LABBT 15:02
PROVIDERS: ATTEND Surgery
DX: Z01.818 Encounter for other preprocedural examination (principal); K43.9 Ventral hernia without obstruction or gangrene; T83.728A Exposure of other implanted mesh into organ or tissue, initial encounter; Z20.822 Contact with and (suspected) exposure to COVID-19
CPT/HCPCS: 80053; 85025; 93005; 93010; U0003; U0005

== ENCOUNTER 2022-01-02 16:30 | Inpatient (IN) | payer BC ==
[2022-01-03] MEDS ORDERED: Fentanyl 250 MCG/5 ML VIAL ONE ×2 (06:34→11:26)
[2022-01-03] MEDS ORDERED: diphenhydrAMINE 50 MG/ML VIAL IM PRN (07:43)
[2022-01-03] MEDS ORDERED: Promethazine HCl 25 MG/ML VIAL IM PRN ×3 (07:43→11:02)
[2022-01-03] MEDS ORDERED: diphenhydrAMINE 25 MG CAP PO PRN (07:43)
[2022-01-03] MEDS ORDERED: Ondansetron PF 4 MG/2 ML Vial IVP PRN ×2 (07:43→11:02)
[2022-01-03] MEDS ORDERED: Naloxone HCl 0.4 mg/ml Vial IV PRN (07:43)
[2022-01-03] MEDS ORDERED: Promethazine HCl 25 MG/ML VIAL IVPB PRN (07:43)
[2022-01-03] MEDS ORDERED: Zolpidem Tartrate 5 MG TAB PO PRN (07:43)
[2022-01-03] MEDS ORDERED: Ondansetron HCl/PF 4 MG/2 ML Vial IVP PRN (07:43)
[2022-01-03] MEDS ORDERED: diphenhydrAMINE 50 MG/ML VIAL IVP PRN (07:43)
[2022-01-03] MEDS ORDERED: Communication Order-Pharmacy FS SCH (07:45)
[2022-01-03] MEDS ORDERED: cefOXitin 2 GM VIAL ONE (07:52)
[2022-01-03] MEDS ORDERED: PHENYLEPHRINE-NS 100 MCG/ML 10 ML SYRINGE ONE (08:05)
[2022-01-03] MEDS ORDERED: Rocuronium Bromide 10 MG/ML (10ML VIAL) ONE (08:05)
[2022-01-03] MEDS ORDERED: Ondansetron PF 4 MG/2 ML Vial ONE (08:05)
[2022-01-03] MEDS ORDERED: Ketorolac Tromethamine 30 MG/ML VIAL ONE (08:05)
[2022-01-03] MEDS ORDERED: PROPOFOL 200 MG/20 ML VIAL ONE (08:05)
[2022-01-03] MEDS ORDERED: Dexamethasone 20 MG/5 ML VIAL ONE (08:05)
[2022-01-03] MEDS ORDERED: Phenylephrine 10 MG/ML VIAL ONE (08:43)
[2022-01-03] MEDS ORDERED: Albumin 5% 0 ML ONE (08:43)
[2022-01-03] MEDS ORDERED: Albumin 5% 500 ML ONE (08:43)
[2022-01-03] MEDS ORDERED: Neomycin-Polymyxin 1 ML AMP ONE ×2 (09:46→10:22)
[2022-01-03] MEDS ORDERED: SUGAMMADEX SODIUM 200 MG/2 ML VIAL ONE ×2 (10:26→10:48)
[2022-01-03] MEDS ORDERED: hydrALAZINE 20 MG/ML VIAL SLOW IVP PRN (11:02)
[2022-01-03] MEDS ORDERED: Sodium Chloride 0.9% 10 ML ONE (11:25)
[2022-01-03] MEDS: metroNIDAZOLE 500 MG in Premix Bag 1 BAG IVPB SCH ×2 (12:00→19:00)
[2022-01-03] MEDS: CEFAZOLIN 2 GM, Admixture Fee 1 EACH in Sodium Chloride 0.9% 100 ML IVPB SCH ×2 (16:44→21:02)
[2022-01-03] MEDS ORDERED: Sodium Chloride 0.9% 500 ML IV SCH (17:00)
[2022-01-03] MEDS: Sodium Chloride 0.9% 1,000 ML IV SCH (17:51)
[2022-01-03] MEDS: Ketorolac Tromethamine 30 MG/ML VIAL IVP SCH ×2 (17:51→18:22)
[2022-01-03] MEDS: HumaLOG 300 UNITS/3 ML VIAL SC PRN (18:21)
[2022-01-03] MEDS: Famotidine/PF 20 mg/2ml Vial SLOW IVP SCH (21:03)
[2022-01-03] MEDS: Famotidine 20 MG TAB PO SCH (21:03)
[2022-01-04] MEDS: Sodium Chloride 0.9% 1,000 ML IV SCH ×4 (00:32→20:41)
[2022-01-04] MEDS: Ketorolac Tromethamine 30 MG/ML VIAL IVP SCH ×2 (00:32→05:15)
[2022-01-04] MEDS: HumaLOG 300 UNITS/3 ML VIAL SC PRN ×2 (00:55→13:30)
[2022-01-04] MEDS: metroNIDAZOLE 500 MG in Premix Bag 1 BAG IVPB SCH (00:55)
[2022-01-04 05:58] LABS: #Lymphocytes 2.2 thou/uL (1.20-3.40); #Monocytes 1.2 thou/uL (0.11-0.59); #Neutrophils 9.7 thou/uL (1.40-6.50); %Basophils 0.4 % (0.0-1.0); %Eosinophils 0.2 % (0.0-10.0); %Lymphocytes 16.6 % (21.0-51.0); %Monocytes 9.4 % (0.0-10.0); %Neutrophils 73.3 % (42.0-75.0); Hemoglobin 12.8 g/dL (14.0-18.0); Mean Corpuscular HGB CONC 32.7 g/dL (32.0-36.0); Mean Corpuscular Hemoglobin 31.1 pg (27.0-31.0); Mean Corpuscular Volume 95.2 fL (78.0-98.0); Mean Platelet Volume 7.6 fL (7.4-10.4); Platelet Count 305 thou/uL (130-400); RBC Distribution Width 12.1 % (11.5-14.5); Red Blood Cell (RBC) Count 4.12 mill/uL (4.70-6.10); White Blood Cell (WBC) Count 13.2 thou/uL (4.8-10.8)
[2022-01-04 06:25] LABS: Anion Gap 18 mmol/L (10-20); BUN (Urea Nitrogen) 36 mg/dL (8.4-25.7); Calc. Creatinine Clearance 74 mL/min (70-130); Calcium 7.9 mg/dL (7.8-10.44); Carbon Dioxide 17 mmol/L (22-29); Chloride 106 mmol/L (98-107); Glucose 145 mg/dL (70-105); Potassium 4.5 mmol/L (3.5-5.1); Sodium 136 mmol/L (136-145)
[2022-01-04] MEDS: Enoxaparin Sodium 40 MG/0.4 ML SYRINGE SC SCH (09:06)
[2022-01-04] MEDS: Famotidine/PF 20 mg/2ml Vial SLOW IVP SCH ×2 (09:07→20:41)
[2022-01-04] MEDS: Famotidine 20 MG TAB PO SCH ×2 (09:07→20:41)
[2022-01-04] MEDS: fentaNYL Citrate/PF 2,000 MCG in Sodium Chloride 0.9% 60 ML IV PRN (17:01)
[2022-01-05] MEDS: Sodium Chloride 0.9% 1,000 ML IV SCH ×3 (01:46→20:36)
[2022-01-05] MEDS: HumaLOG 300 UNITS/3 ML VIAL SC PRN ×3 (06:22→18:30)
[2022-01-05 07:56] LABS: Anion Gap 15 mmol/L (10-20); BUN (Urea Nitrogen) 34 mg/dL (8.4-25.7); Calc. Creatinine Clearance 72 mL/min (70-130); Calcium 7.9 mg/dL (7.8-10.44); Carbon Dioxide 19 mmol/L (22-29); Chloride 108 mmol/L (98-107); Glucose 178 mg/dL (70-105); Sodium 138 mmol/L (136-145)
[2022-01-05] MEDS: Enoxaparin Sodium 40 MG/0.4 ML SYRINGE SC SCH (08:33)
[2022-01-05] MEDS: Famotidine/PF 20 mg/2ml Vial SLOW IVP SCH ×2 (08:33→20:36)
[2022-01-05] MEDS: Famotidine 20 MG TAB PO SCH (09:00)
[2022-01-05] MEDS: fentaNYL Citrate/PF 2,000 MCG in Sodium Chloride 0.9% 60 ML IV PRN (16:27)
[2022-01-05] MEDS ORDERED: Sodium Chloride 0.9% 500 ML IV SCH (19:00)
[2022-01-06] MEDS: Sodium Chloride 0.9% 1,000 ML IV SCH ×4 (00:06→20:30)
[2022-01-06] MEDS: Famotidine 20 MG TAB PO SCH ×3 (00:06→20:30)
[2022-01-06 05:44] LABS: Anion Gap 14 mmol/L (10-20); BUN (Urea Nitrogen) 29 mg/dL (8.4-25.7); Calc. Creatinine Clearance 86 mL/min (70-130); Calcium 8.3 mg/dL (7.8-10.44); Carbon Dioxide 22 mmol/L (22-29); Chloride 109 mmol/L (98-107); Glucose 149 mg/dL (70-105); Potassium 4.8 mmol/L (3.5-5.1); Sodium 140 mmol/L (136-145)
[2022-01-06] MEDS: Enoxaparin Sodium 40 MG/0.4 ML SYRINGE SC SCH (09:45)
[2022-01-06] MEDS: Famotidine/PF 20 mg/2ml Vial SLOW IVP SCH ×2 (09:45→20:31)
[2022-01-06] MEDS: Lisinopril 20 MG TAB PO SCH (09:45)
[2022-01-06] MEDS ORDERED: HYDROcodone/Acetaminophen 10/325 mg Tablet PO SCH (10:45)
[2022-01-06] MEDS: Morphine 4 MG/ML VIAL SLOW IVP PRN (20:37)
[2022-01-07] MEDS: Sodium Chloride 0.9% 1,000 ML IV SCH ×2 (04:23→10:10)
[2022-01-07 05:50] LABS: Anion Gap 13 mmol/L (10-20); BUN (Urea Nitrogen) 19 mg/dL (8.4-25.7); Calc. Creatinine Clearance 0 mL/min (70-130); Calcium 7.9 mg/dL (7.8-10.44); Carbon Dioxide 18 mmol/L (22-29); Chloride 108 mmol/L (98-107); Glucose 123 mg/dL (70-105); Potassium 3.8 mmol/L (3.5-5.1); Sodium 135 mmol/L (136-145)
[2022-01-07] MEDS: Lisinopril 20 MG TAB PO SCH ×3 (08:20→20:17)
[2022-01-07] MEDS: Enoxaparin Sodium 40 MG/0.4 ML SYRINGE SC SCH (08:21)
[2022-01-07] MEDS: Famotidine 20 MG TAB PO SCH ×2 (08:21→20:09)
[2022-01-07] MEDS: Famotidine/PF 20 mg/2ml Vial SLOW IVP SCH ×2 (08:27→20:17)
[2022-01-07 11:53] VITALS: BMI 39.9
[2022-01-07] MEDS: HumaLOG 300 UNITS/3 ML VIAL SC PRN (16:17)
[2022-01-08] MEDS: Morphine 4 MG/ML VIAL SLOW IVP PRN ×2 (01:37→09:23)
[2022-01-08] MEDS: Lisinopril 20 MG TAB PO SCH ×2 (08:04→09:11)
[2022-01-08] MEDS: Famotidine 20 MG TAB PO SCH (08:05)
[2022-01-08] MEDS: Enoxaparin Sodium 40 MG/0.4 ML SYRINGE SC SCH (08:06)
[2022-01-08] MEDS: Famotidine/PF 20 mg/2ml Vial SLOW IVP SCH (09:00)
[2022-01-08 11:43] VITALS: BP 171/95
[2022-01-08] MEDS: Sodium Chloride 0.9% 1,000 ML IV SCH (13:48)
[2022-01-08 17:06] VITALS: TEMP 97.8
== END 2022-01-08 17:30 | disposition home or self-care (01) | DRG 908 ==
LOC: SURG A 01-03 05:50 → SJJU 01-03 14:41 → EDSTATUS 01-03 16:30
PROVIDERS: ADMIT Surgery; ATTEND Surgery
PROC: 0WUF0JZ Supplement Abdominal Wall with Synthetic Substitute, Open Approach (ICD-10-PCS; principal; 2022-01-03)
PROC: 0WPF0JZ Removal of Synthetic Substitute from Abdominal Wall, Open Approach (ICD-10-PCS; 2022-01-03)
DX: T85.79XA Infection and inflammatory reaction due to other internal prosthetic devices, implants and grafts, initial encounter (principal); K43.0 Incisional hernia with obstruction, without gangrene; K63.2 Fistula of intestine; T83.728A Exposure of other implanted mesh into organ or tissue, initial encounter; Z20.822 Contact with and (suspected) exposure to COVID-19; Y83.8 Other surgical procedures as the cause of abnormal reaction of the patient, or of later complication, without mention of misadventure at the time of the procedure; F17.210 Nicotine dependence, cigarettes, uncomplicated; R03.0 Elevated blood-pressure reading, without diagnosis of hypertension; Z79.899 Other long term (current) drug therapy; Z79.84 Long term (current) use of oral hypoglycemic drugs; Z98.890 Other specified postprocedural states; Z90.49 Acquired absence of other specified parts of digestive tract; Z01.818 Encounter for other preprocedural examination; K43.9 Ventral hernia without obstruction or gangrene
CPT/HCPCS: 36415; 36416; 80048; 80053; 85025; 87070; 87205; 88304; 93005; 93010; J0360; J0690; J0694; J1100; J1650; J1815; J1885; J2270; J2370; J2405; J2704; J3010; J3490; J7030; J7050; P9045; Q4116; S0028; U0003; U0005